=== PATIENT | male | born 1965 | race Caucasian/White ===

== ENCOUNTER 2021-03-01 14:39 | Outpatient (RCR) | payer OTHER, SELFPAY ==
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
--- NOTE | 2021-03-29 15:40 | PTOPEVAL ---
Thank you for referring Atilio Travis to [facility].? The patient is scheduled to be seen for therapy? ____x/week for ___ weeks. Please review, sign, date and return this plan of care BARNEY. I agree with and certify that the following plan of care is medically necessary. 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 he reports Family he still has some issues with tingling in the hands, feet, and face, but reports his strength and endurance are much improved since beginning therapy. Pain Assessment Timing of Pain Assessment Timing of Pain Assessment Assessment Self Report Self Report Pain Level 0 Pain Score Pain Score 0: Self Report Lower Extremity Muscle Strength Testing General Lower Extremity Strength Gross Lower Extremity Strength 5/5 R ankle DF and 5/5 PF 5/5 L ankle DF and 5/5 PF 5/5 R knee 5/5 L knee 5/5 hip flexion all measured in sitting Balance Assessment Tinetti Balance Assessment Sitting Balance Steady, safe Ability to Arise Able, w/o using arms Attempts to Arise Arises on 1st attempt Immediate Standing Balance Steady w/o support Standing Balance Narrow stance w/o support Nudged Response Steady Standing with Eyes Closed Steady Step Pattern Turning 360 Degrees Continuous steps Stability Turning 360 Degrees Steady Sitting Down Safe, steady Initiation of Gait No hesitancy Right Foot Step Length Does pass stance foot Right Foot Step Height Completely clears floor Left Foot Step Length Does pass stance foot Left Foot Step Height Completely clears floor Step Symmetry Step length appears equal Step Continuity Steps appear continuous Path Description Straight Trunk Description No sway Walking Stance Heels together Assistive Devices Used No Tinetti Composite Sco
== END 2021-03-29 14:19 | disposition home or self-care (01) ==
LOC: CHSPT 14:39
DX: G61.0 Guillain-Barre syndrome (principal)
CPT/HCPCS: 97110; 97112; 97161; 97530

== ENCOUNTER 2023-01-24 20:55 | Emergency (ER) | payer OTHER, SELFPAY ==
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
[2023-01-24 21:02] VITALS: BP 119/79; PULSE 73; RESP 16; TEMP 36.1; O2SAT 96
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
== END 2023-01-24 22:39 | disposition home or self-care (01) ==
PROVIDERS: Emergency Provider Internal Medicine Critical Care Medicine
DX: S01.112A Laceration without foreign body of left eyelid and periocular area, initial encounter (principal); I48.91 Unspecified atrial fibrillation; F17.210 Nicotine dependence, cigarettes, uncomplicated; Z79.01 Long term (current) use of anticoagulants; V89.2XXA Person injured in unspecified motor-vehicle accident, traffic, initial encounter
CPT/HCPCS: 12011; 70450; 72170; 99284

== ENCOUNTER 2024-10-17 11:44 | Emergency (ER) | payer OTHER, SELFPAY ==
[2024-10-17] VITALS (22 sets, daily range): BP systolic 114–132; BP diastolic 80–97; PULSE 64–69; RESP 18–20; TEMP 36.7; O2SAT 95–99
--- NOTE | ~2024-10-17 | CT_ITS ---
EXAM: CT abdomen pelvis w con - 10/17/2024 14:05 CDT History: 59 years old Male with lower abdominal pain, constipation/diarrhea x3 days TECHNIQUE: Multidetector CT of the abdomen and pelvis with intravenous contrast. Coronal and sagitta l reformats were also provided for review. Automatic exposure control was used for this study. CONTRAST: 100 cc of Optiray 350 was used for this study. COMPARISON: None Available. FINDINGS: VISUALIZED CHEST: Mild dependent changes. ABDOMEN and PELVIS: LIVER: Within normal limits. GALLBLADDER: No calcified gallstones. BILE DUCTS: No dilatation. SPLEEN: Within normal limits. PANCREAS: Within normal limits. ADRENAL GLANDS: Within normal limits. KIDNEYS and URETERS: No hydronephrosis or hydroureter. No nephroureterolithiasis. URINARY BLADDER: Within normal limits. STOMACH and BOWEL: Diffuse fat stranding around the sigmoid colon. Findings are compatible with acute sigmoid diverticulitis and/or focal colitis. No rim-enhancing abscess seen. Normal appendix. Multipl e colonic diverticula are seen. REPRODUCTIVE ORGANS: Within normal limits. MESENTERY/PERITONEAL CAVITY: No free fluid or pneumoperitoneum. LYMPH NODES: No abdominal or pelvic lymphadenopathy. ABDOMINAL WALL: Within normal limits. VASCULATURE: Within normal limits. MUSCULOSKELETAL: Multilevel degenerative changes of the spine. IMPRESSION: Findings are compatible with acute uncomplicated sigmoid diverticulitis and/or focal colitis. No rim- enhancing abscess seen. Reviewed, dictated and finalized at location A. IMPRESSION: Findings are compatible with acute uncomplicated sigmoid diverticulitis and/or focal colitis. No rim-enhancing abscess seen.
--- OUTSIDE RECORDS SUMMARY | 2024-10-17 11:47 | XMS_ITS | Data Portability ---
Author Organization [facility]/[employer] [employer] [facility] K[facility] SI (11) Address [address] [facility] [address] [place] [address] Care Team Providers Care Bulk Station Agent Name Role Phone VITA NGUYEN Referring Provider Assessment No assessment recorded. Plan of Treatment Reminders Order Date Submit Date Provider Last Modified By Organization Details Last Modified Time Details Appointments None record ed. Lab None record ed. Referral None record ed. Procedures None record ed. Surgeries None record ed. Imaging None record ed. Medication Orders None record ed. Patient TargetsNo targets recorded. Patient InstructionsNo instructions recorded. Reason for Referral None Reported. Procedures Surgical History Date Name Laterality Status Provider Name and Address Organization Details Recorded Time 05/04/2022 Sleep Study completed Oleksandr Hemphill [facility] [employer] 05/05/19 23 09:22:18 12/29/2020 Sleep Study completed Oleksandr Hemphill [facility] [employer] 01/01/20 21 12:55:10 Imaging Results None recorded. Procedure Notes None recorded. Medical Equipment None Reported. Medications Name Sig Start Date Stop Date Status Note LastModified by Organization Details LastModified Time vancomycin 125 mg capsule TAKE ONE CAPSULE BY MOUTH EVERY 6 HOURS FOR 10 DAYS DIRECTED active Not Available Not Available No t Available gabapentin 300 mg capsule TAKE 1 CAPSULE BY MOUTH THREE TIMES DAILY active Not Available Not Available No t Available metoprolol succinate ER 25 mg tablet,extende d release 24 hr active Not Available Not Available Not Available rosuvastatin 40 mg tablet TAKE 1 TABLET BY MOUTH EVERY DAY active Not Available Not Available No t Available metoprolol tartrate 25 mg tablet active Not Available Not Available Not Available tinidazole 500 mg tablet TAKE 4 TABLETS BY MOUTH DAILY FOR 3 DAYS active Not Available Not Available No t Available Eliquis 5 mg tablet active Not Available Not Available Not Available Vitals Date Recorded Body height Body mass index (BMI) Body weight Provider Name and Address Organization Details Last Updated DateTime 05/04/2022 175.26 cm 28.1 kg/m2 72712.55 g Jessica Lopez [facility] 05/04/2022 16:30:29 Date Recorded Body height Body mass index (BMI) Body weight Provider Name and Address Organization Details Last Updated DateTime 05/04/2022 175.26 cm 28.1 kg/m2 73873.55 g Oleksandr Hemphill [facility] 05/05/2022 09:21:29 Date Recorded Body height Body mass index (BMI) Body weight Provider Name and Address Organization Details Last Updated DateTime 12/29/2020 175.26 cm 27.9 kg/m2 41052.96 g Oleksandr Hemphill [facility] 12/29/2020 13:23:18 Social History None recorded. Functional Status None recorded. Mental Status None recorded. Family History Nothing Reported. Medical History No medical history recorded. Past Encounters Encounter ID Performer Location Encounter Start Date Encounter Closed Date Diagnosis/Indication Diagnosis SNOMED-CT Code Diagnosis ICD10 Code Diagnosis Note [id number] [employer] [facility] [id number] [facility] [address] [place] [address] 12/29/2020 12:59:21 12/30/2020 11:56:44 Obstructive sleep apnea of adult 5461214753 103 G47.33 [id number] [employer] [facility] [id number] [facility] [address] [place] [address] 05/04/2022 20:24:58 05/05/2022 09:18:56 Obstructive sleep apnea of adult 7248148051 103 G47.33 Health Concerns Section Related Observation LastModified by Organization Detai ls LastModified Time None Recorded Concern Status LastModified by Organization Details LastModified Time None Recorded Advance Directives Directive None Recorded Payers Insurance Date Sequence Insurance Name Policy Number Policy Jauregui Covered Member ID Jauregui Member ID Guarantor Name 05/11/[address] [place] [address] [id number] Atilio Range Notes Date Note Type Note Provider Name and Address Organization Details Recorded Time 1 text/html HST SetupReported by PatientEquipment InstructionsFor hst set up, patient reportsdemonstrated to patient how to set up home sleep test device. the patient was able to return demonstration with out difficulty.andthe patient is returning the device the following morning.. Cole Lebron MD, F.C.C.P. [id number] [place] [address], [place], [address], [facility] [place] [facility] 01/04/2021 08:38:21
--- OUTSIDE RECORDS SUMMARY | 2024-10-17 11:47 | XMS_ITS | Clinical Summary ---
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 Gender Identity Not on file Sexual Orientation Not on file Plan of Treatment Health Maintenance Due Date Last Done Comments Hepatitis C Virus (HCV) Screening 1965 TdaP Immunization 1965 Hepatitis B Immunization (1 of 3 - 19+ 3-dose series) 1984 Colonoscopy 2010 Colorectal Cancer Screening 2010 Cologuard 2015 Immunochemical Fecal Occult Blood 2015 Pneumococcal Immunization (5 0+ years) (1 of 1 - PCV) 2015 Zoster Immunization (1 of 2) 2015 PSA Discussion 2020 Influenza Immunization (#1) 2023 092 , 01/06/2019 SARS-COV-2 Immunization ( season) 2023 06/15/2020, 05/25/2020 Respiratory Syncytial Virus (RSV) Immunization (Adult) (1 - 1-dose 75+ series) 2040 Meningococcal Immunization (ACWY) Aged Out No longer eligible b ased on patient's age to complete this topic Pneumococcal Immunization Combined Aged Out No longer eligible b ased on patient's age to complete this topic Rotavirus Immunization Aged Out No lo nger eligible based on patient's age to complete this topic
--- OUTSIDE RECORDS SUMMARY | 2024-10-17 11:47 | XMS_ITS ---
Author Organization [facility] Address [address] [place] [id number] Care Team Providers Care Director Of Pulmonary Unit Name Role Phone Malick Li Primary Care Provider REASON FOR VISIT BJC, AFIB Social History Sex Assigned At : Social History Observation Description Sex Assigned At Male Encounters Encounter Location Date Provider Diagnosis [address] [address] 09/25/2024 Malick Li Plan Of Treatment Next Appt Details Provider Name:Jak Poon jaswinder, 12/23/2024 10:40:00 AM, [address] [place] [address], [phone], Progress Notes * Atilio TRAVIS BDOB:[birth year] (59 yo M)Acc No.[id number]:09/25/2024 Transition of Care Managemen t From Hospital Patient: Atilio JANG Provider: Maggie Li MD, FACP, AAHIVS :1965 A ge:59 Y S ex:Male Date:09/25/2024 Address:[address], [id number] Subjective: * Chief Complaints: * 1 . BJC, AFIB. * Active Problem List A53.9 Syphilis, unspecifie d Clinical Status:0 E78.4 Other hyperlipidemia Modified On:2Clinical Status:0 E78.5 Hyperlipidemia, unsp ecified Modified On:02/16/2021linical Status:0 F17.210 Nicotine dependence, cigarettes, uncomplicated Clinical Status:0 L72.9 Follicular cyst of t he skin and subcutaneous tissue, unspecified Clinical Status:0 R50.9 Fever, unspecified Clinical Status:0 Z20.2 Contact with and (busch spected) exposure to infections with a predominantly sexual mode of transmission Clinical Status:0 E78.5 Other and unspecifie d hyperlipidemia Modified On:03/07/2018Clinical Status:0 Z00.00 Routine general medi gabo examination at a health care facility Modified On:03/07/2018Clinical Status:0 F17.200 Tobacco use disorder Modified On:03/07/2018Clinical Status:0 G47.00 Insomnia Modified On:02/13/2020U Status:confirmed N40.1 Benign non-nodular p rostatic hyperplasia with lower urinary tract symptoms Modified On:2022 Status:confirmed G47.30 Sleep apnea Modified On:09/06/2022U Status:confirmed I49.9 Cardiac arrhythmia, unspecified cardiac arrhythmia type Modified On:02/16/2021 Status:confirmed I48.[address] Modified On:2022 Status:confirmed G62.9 Peripheral polyneuro tim Modified On:02/16/2021 Status:confirmed I48.3 Typical atrial flutt er Modified On:09/06/2022 Status:confirmed E74.39 Glucose intolerance Modified On:02/16/2021U Status:confirmed K59.00 Constipation, unspec ified constipation type Modified On:02/22/2021U Status:confirmed 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 Modified On:09/06/2022U Status:confirmed F41.9 Anxiety Modified On:09/06/2022U Status:confirmed E11.9 Type 2 diabetes luis alberto itus without complication, without long-term current use of insulin Modified On:08/25/2021U Status:confirmed F17.210 Smoking greater than 20 pack years Modified On:09/06/2022U Status:confirmed E78.00 Hypercholesteremia Modified On:09/06/2022W/U Status:confirmed K05.10 Gingivitis Modified On:06/13/2023W/U Status:confirmed B00.9 Herpes simplex Modified On:06/12/2024/U Status:confirmed * Medical History: * Implants: Objective: * Vitals: Assessment: Plan: * Treatment: * Billing Information: * Visit Code: * Procedure Codes: Care Plan Details* * Electronic signature of Miki Li MD, FACP on 10/17/2024 at 11:46 AM CDT Sign off status: Pending * Provider: Maggie Li MD, FACP, AAHIVS Date: 09/25/2024 Generated for Ttae aguero/Kelley/Gemaitting on: 10/17/2024 11:46 AM CDT
--- OUTSIDE RECORDS SUMMARY | 2024-10-17 11:47 | XMS_ITS | Encounter Summary ---
Author Organization [facility] Address [address] [place] [address] Phone Care Team Providers Care Percussion Tuner Name Role Phone Malick Li MD Primary Care Provider [phone] Encounter Details Date Type Department Care Team (Late st Contact Info) Description 10/13/2024 Results Follow-Up [facility] Cardiology [address] [facility] Advanced Medicine 8th [place] [address] [place] [address] Katelin Bates, MONICA [address] [place] [address] ECG 12 lead Social History Tobacco Use Types Packs/Day Years Used Date Smoking Tobacco: Every Day Cigarettes 0.5 40.6 Started: 1984 Smokeless Tobacco: Never Alcohol Use Standard Drinks/Week Comments Yes 0 (1 standard drink = 0.6 oz pur e alcohol) AUDIT-C Answer Date Recorded Q1: How often do you have a drink containing alc ohol? 2-4 times a month 10/18/2022 Average Number of Drinks Not on file 023 Frequency of Binge Drinking Not on file 09/24 Personal Safety Answer Date Recorded Have you ever been in or are you currently in a harmful physical or emotional relationship or is someone making you feel afraid or unsafe? 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 Auris positive patient on 09/17/24. Please contact infection prevention for instructions on obtaining surveillance cultures. - Re-admitted greater or equal to 7 days collect 1 swab. -If possible, can collect in outpatient setting. 09/17/2024 09/30/2024 documented as of this encounter Care Teams Percussion Tuner Relationship Specialty Start Date End Date Malick Li MD [address] [place] [address] PCP - General Internal Medicine 04/21/20 documented as of this encounter
--- OUTSIDE RECORDS SUMMARY | 2024-10-17 11:47 | XMS_ITS | Clinical Summary ---
Author Organization [facility] Address [address] [place] [address] Care Team Providers Care Acquisition Professional Name Role Phone Srikanth Hummel MD Primary Care Provider Aaliyah vailable Source Comments [facility],non-owned Affiliates and Associated Physician Practices is amultiple site organization consisting of ambulatory clinics and hospital sitesin [place], [place], [place] and [place]. This disclosure is being madepursuant to the Care Everywhere program and may not contain all information available regarding this patient. Last updated [facility] Allergies No known active allergies Medications * Be aware that medications may not be up to date on this document. Alwaysverify current medications with the patient. simvastatin (ZOCOR) 10 MG tablet Take 10 mg by mouth daily. Active JUICE PLUS FIBRE PO Take by mouth daily. Active hydrocodone-acet aminophen (VICODIN) 5-500 MG tablet Take 1-2 Tabs by mouth 4 times daily as needed for Pain. 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 Gender Identity Not on file Sexual Orientation Not on file Last Filed Vital Signs Vital Sign Reading Time Taken Comments Blood Pressure 155/96 09/21/2008 5:53 PM CDT Pulse 71 09/21/2008 5:53 PM CDT Temperature 36.1 C (97 F) 09/21/2008 4:18 PM CDT Respiratory Rate 16 09/21/2008 5:53 PM CDT Oxygen Saturation 99% 09/21/2008 5:53 PM CDT Inhaled Oxygen Concentration - - Weight 77.6 kg (171 lb) 09/21/2008 9:45 AM CDT Height 177.8 cm (5' 10) 09/21/2008 9:45 AM CDT Body Mass Index 24.54 09/21/2008 9:45 AM CDT Plan of Treatment Health Maintenance Due Date Last Done Comments COLOGUARD (AGES 45-75) - COL ON CA SCREENING 1965 COLON MONITORING 1965 COLONOSCOPY - COLON CA SCREENING 1965 CT COLONOGRAPHY - COLON CA SCREENING 1965 Colorectal Cancer Screening 1965 FIT - COLON CA SCREENING 1965 FLEX SIG - COLON CA SCREENING 1965 HIV SCREENING 1980 HEPATITIS C SCREENING 03/02/1983 DTAP/TDAP/TD VACCINES (1 - Tdap) 1984 HEPATITIS B VACCINE (1 of 3 - 19+ 3-dose series) 1984 PNEUMOCOCCAL VACCINE 50+ (1 of 1 - PCV) 2015 ZOSTER VACCINE (1 of 2) 2015 COVID-19 VACCINE (1 - 2023-2 5 season) 2023 DEPRESSION SCREENING 03/26/2024 INFLUENZA VACCINE (#1) 2024 HIB VACCINE Aged Out No longer eligi ble based on patient's age to complete this topic HPV VACCINE Aged Out No longer eligi ble based on patient's age to complete this topic MENINGOCOCCAL (Group B) VACC INE SHARED DECISION-MAKING Aged Out No longer eligibl e based on patient's age to complete this topic MENINGOCOCCAL GROUPS A/C/Y/W VACCINE Aged Out No longer eligible b ased on patient's age to complete this topic Insurance [facility] Care Teams Acquisition Professional Relationship Specialty Start Date End Date Srikanth Hummel MD PCP - General 09/18/08
--- OUTSIDE RECORDS SUMMARY | 2024-10-17 11:47 | XMS_ITS | Referral Summary ---
Author Organization [facility] Address [address] [place] [id number] Care Team Providers Care Living Specialist Name Role Phone Malick Li MD Primary Care Provider [phone]- [phone] Encounters Date Type Department Care Team Description 10/15/[address] [place] [id number] Sami Narayanan MD PhD 10/13/2024 Results Follow-Up [address] [place] [address] Katelin Bates NP ECG 12 lead 10/13/2024 2:45 PM CDT Office Visit [address] [place] [address] Katelin Bates NP Typical atrial flutter (HCC) (Primary Dx) 09/15/2024 7:04 PM CDT - 09/18/2024 11:01 AM CDT Hospital Encounter [facility] 1 [place] [address] Sami Narayanan MD PhD [facility] MD Aldiabat, Mohammad Awad Yousef, MD Discharge Disposition: Discharge to home or self care 09/15/2024 Telephone [facility] Bed Planning [address] [place] [address] Shannon Cuadra RN 09/08/2024 Telephone [facility] ADMIT 1 [place] [address] Maria Del Rosario Martinez RN 09/08/2024 Telephone [facility] Cardiology [facility] 8th [place] [address] [place] [address] Lexie Booianna 08/11/[address] 8th [place] [address] [place] [address] Sami Narayanan MD PhD 08/08/[address] 8th [place] [address] [place] [address] Sami Narayanan MD PhD 07/29/2024 1:00 PM CDT Office Visit [facility] Neuro Sleep [address] [facility] 6th Floor [address] [place] [address] Ricardo Rutherford PA TIANA (obstructive sleep apnea) (Primary Dx); Chronic insomnia; S/P placement of hypoglossal nerve stimulator 07/24/[address] [place] [address] [place] [address] Sami Narayanan MD PhD 07/24/2024 2:30 PM CDT Office Visit [facility] Neuro Muscle [address] [place] [address] [place] [address] [place] [address] Karen Mora MD 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 Medical Office Building 3 [address] [place] [address] Sami Narayanan MD PhD ECG 12 lead 07/23/2024 12:15 PM CDT Office Visit [address] [place] [address] [place] [address] Sami Narayanan MD PhD Paroxysmal atrial fibrillation (HCC) (Primary Dx); Typical atrial flutter (HCC) from Last 3 Months Allergies No known active allergies Medications rosuvastatin (CRESTOR) 40 mg tablet Take 1 tablet (40 mg total) by mouth every morning 1 Active Eliquis 5 mg tablet TAKE 1 TABLET(5 MG) BY MOUTH TWICE DAILY 60 tablet 11 4 Active dofetilide (TIKOSYN) 250 mcg capsuleIndicati ons:cardiac arrhythmia Take 1 capsule (250 mcg total) by mouth 2 (two) times a day 180 capsule 1 5 Active metoprolol XL (TOPROL-XL) 50 mg extended release tabletIndicatio ns:Atrial Arrhythmia Take 1 tablet (50 mg total) by mouth every morning 90 tablet 3 5 Active metoprolol XL (TOPROL-XL) 25 mg extended release tabletIndicatio ns:Atrial Arrhythmia Take 3 tablets (75 mg total) by mouth every morning 270 tablet 1 5 09/19/19 25 Discontinu ed(Stop Taking at Discharge) dofetilide (TIKOSYN) 250 mcg capsuleIndicati ons:cardiac arrhythmia Take 1 capsule (250 mcg total) by mouth 2 (two) times a day 60 capsule 5 10/16/19 25 Discontinu ed(Reorder ) metoprolol XL (TOPROL-XL) 50 mg extended release tabletIndicatio ns:Atrial Arrhythmia Take 1 tablet (50 mg total) by mouth every morning 30 tablet 5 10/16/19 25 Discontinu ed(Reorder ) Active Problems Problem Noted Date Diagnosed Date A-fib 09/15/2024 Assessment & Plan (09/18/2024 10:23 AM CDT): History of AFib s/p ablation 2020, Admit for dofetilide loading. - Telemetry -tikosyn 250 bid - EKG 2 hours after each dofetilide dose - Cardiology follow-up - metoprolol 50 xl - Continue home Eliquis Assessment & Plan (09/17/2024 1:24 PM CDT): History of AFib s/p ablation 2020, Admit for dofetilide loading. - Telemetry -tikosyn 250 bid - EKG 2 hours after each dofetilide dose - Cardiology follow-up - metoprolol 50 xl - Continue home Eliquis Assessment & Plan (09/16/2024 3:19 PM CDT): History of AFib s/p ablation 2020, Admit for dofetilide loading. - Telemetry -tikosyn 250 bid - EKG 2 hours after each dofetilide dose - Cardiology follow-up - metoprolol 50 xl - Continue home Eliquis Assessment & Plan (09/15/2024 10:18 PM CDT): History of AFib s/p ablation 2020, Admit for dofetilide loading. - Obtain CBC, CMP, Mag, phos, TSH, EKG - We will initiate dofetilide pending admission workup - Telemetry - EKG 2 hours after each dofetilide dose - Cardiology follow-up in a.m. - Hold home metoprolol - Continue home Eliquis Typical atrial flutter 06/21/2023 Atypical atrial flutter 06/21/2023 Sleep apnea 06/21/2023 Insomnia 06/21/2023 Type 2 diabetes mellitus without complication Tobacco use disorder 06/21/2023 Syphilis 06/21/2023 Smoking greater than 20 pack years 06/21/2023 Peripheral polyneuropathy 06/21/2023 Lower urinary tract symptoms due to benign prostatic hyperplasia 06/21/2023 HLD (hyperlipidemia) 06/21/2023 Assessment & Plan (09/18/2024 10:23 AM CDT): History hyperlipidemia: Continue home Crestor Assessment & Plan (09/17/2024 1:24 PM CDT): History hyperlipidemia: Continue home Crestor Assessment & Plan (09/16/2024 3:19 PM CDT): History hyperlipidemia: Continue home Crestor Assessment & Plan (09/15/2024 10:18 PM CDT): History hyperlipidemia: Continue home Crestor Hypercholesteremia 06/21/2023 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 Glucose intolerance 06/21/2023 Fever 06/21/2023 Epidermoid cyst of skin 06/21/2023 Constipation 06/21/2023 Cardiac arrhythmia 06/21/2023 Anxiety 06/21/2023 Chronic insomnia 01/06/2023 TIANA (obstructive sleep apnea) 08/04/2022 Overview (10/18/2022): DIAGNOSIS: Obstructive sleep apnea with CPAP intolerance PROCEDURE PERFORMED:(Pete 08/15/22) Drug induced sleep endoscopy DIAGNOSIS: Obstructive sleep apnea PROCEDURE PERFORMED: (Pete 09/28/22) Right hypoglossal nerve stimulator implantation Generator placement right chest wall Lead placement right intercostal muscle Weakness 02/24/2021 Typical atrial flutter 12/31/2020 Overview (12/31/2020): Added automatically from request for surgery [id number] Sensorineural hearing loss ( SNHL) of right ear with restricted hearing of left ear 05/04/2020 Mixed conductive and sensori neural hearing loss of left ear with restricted hearing of right ear 05/04/2020 Immunizations Immunization Administration Dates Next Due Influenza, Quadrivalent, Spl it, Preservative Free, Intramuscular 12/14/2019,01/06/2019 Influenza, Trivalent, IM (MDV) 12/23/2020 Pneumococcal Conjugate PCV 13 2018 Pneumococcal Polysaccharide PPV23 03/01/2016 ZOSTER Recombinant 08/16/2020,2018 Social History Tobacco Use Types Packs/Day Years Used Date Smoking Tobacco: Every Day Cigarettes 0.5 40.6 Started: 1984 Smokeless Tobacco: Never Tobacco Cessation:Ready to Q uit: No; Counseling Given: No Alcohol Use Standard Drinks/Week Comments Yes 0 [...] on file Legal Sex 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 Gender Identity Not on file Sexual Orientation Not on file Last Filed Vital Signs Vital Sign Reading Time Taken Comments Blood Pressure 119/82 10/13/2024 2:42 PM CDT Pulse 67 10/13/2024 2:42 PM CDT Temperature 36.6 C (97.9 F) 09/18/2024 7:47 AM CDT Respiratory Rate 18 09/18/2024 7:47 AM CDT Oxygen Saturation 99% 10/13/2024 2:42 PM CDT Inhaled Oxygen Concentration - - Weight 84.5 kg (186 lb 3.2 oz) 10/13/2024 2:42 P M CDT Height 175.3 cm (5' 9) 10/13/2024 2:42 PM CDT Body Mass Index 27.5 10/13/2024 2:42 PM CDT Plan of Treatment Not on file Medical Devices Implanted Type Area Wall Covering Contractor Device Identifier Shelf Expiration Date Model / Serial / Lot [employer] [id number] System 6-12fr Mvp Venous Closure Vascade - [id number] - [id number] Implanted:Qty: 1 on 01/28/2021 by Jeramie Caban MD at [facility] Collagen Right: Groin [employer] 10/07/2022 800-612C- [id number] / [id number] / [employer] [id number] System 6-12fr Mvp Venous Closure Vascade - [id number] Implanted:Qty: 1 on 01/28/2021 by Jeramie Caban MD at [facility] Collagen Right: Groin [employer] 11/10/2022 800-612C- 10U / / [id number] 30C [employer] [id number] System 6-12fr Mvp Venous Closure Vascade - [id number] - [id number] Implanted:Qty: 1 on 01/28/2021 by Jeramie Caban MD at [facility] Collagen Left: Groin [employer] 11/10/2022 800-612C- 10U / [id number] / [id number] 30C [employer] [id number] Device Closure Vascade Od5 Fr Femoral Artery - [id number] - [id number] Implanted:Qty: 1 on 01/28/2021 by Jeramie Caban MD at [facility] Collagen Left: Groin [employer] 10/11/2022 [id number] -[id number] / [id number] / [id number] [employer] Inspire 3 Electrode Cuff Tunnel Mendez Lead Neurostimulator Sterile 4063 - [id number] - [id number] Implanted:Qty: 1 on 09/28/2022 by Omar Freeman MD at [facility] Right: Neck [employer] 06/11/2025 4063 / [id number] / [employer] Lead Neurostimulator Sleep Apnea Thoracic Permanent Respiratory Sensing Inspire 43cm 4340 - [id number] - [id number] Implanted:Qty: 1 on 09/28/2022 by Omar Freeman MD at [facility] Right: Chest [employer] 07/24/2025 4340 / [id number] / [employer] Inspire Generator 3028 - [id number] - [id number] Implanted:Qty: 1 on 09/28/2022 by Omar Freeman MD at [facility] Right: Chest [employer] 06/08/2025 3028 / [id number] / Procedures Procedure Name Priority Date/Time Associated Diagnosis Comments ECG 12-LEAD Routine 10/13/2024 2:53 PM CDT Typical atrial flutter (HCC) ECG 12-LEAD Routine 09/18/2024 10:11 AM CDT EGFR Routine 09/18/2024 3:20 AM CDT MAGNESIUM Routine 09/18/2024 3:20 AM CDT BASIC METABOLIC PANEL Routine 09/18/2024 3:20 AM CDT ECG 12-LEAD Routine 09/17/2024 10:34 AM CDT EGFR Routine 09/17/2024 3:19 AM CDT MAGNESIUM Routine 09/17/2024 3:19 AM CDT BASIC METABOLIC PANEL Routine 09/17/2024 3:19 AM CDT EGFR Routine 09/16/2024 3:40 AM CDT DIFFERENTIAL AUTO Routine 09/16/2024 3:4 0 AM CDT CBC WITH AUTO DIFFERENTIAL Routine 09/16/2024 3:40 AM CDT PHOSPHORUS Routine 09/16/2024 3:40 AM CDT MAGNESIUM Routine 09/16/2024 3:40 AM CDT COMPREHENSIVE METABOLIC PANEL Routine 09/16/2024 3:40 AM CDT EGFR STAT 09/15/2024 10:31 PM CDT DIFFERENTIAL AUTO STAT 09/15/2024 10:31 PM CDT PROTIME-INR STAT 09/15/2024 10:31 PM CDT APTT STAT 09/15/2024 10:31 PM CDT TSH STAT 09/15/2024 10:31 PM CDT PHOSPHORUS STAT 09/15/2024 10:31 PM CDT MAGNESIUM STAT 09/15/2024 10:31 PM CDT CBC WITH AUTO DIFFERENTIAL STAT 09/15/2024 10:31 PM CDT COMPREHENSIVE METABOLIC PANEL STAT 09/15/2024 10:31 PM CDT ECG 12-LEAD Routine 07/23/2024 12:01 PM CDT Paroxysmal atrial fibrillation (HCC) CT LUNG CANCER SCREENING Schedule Routine, Read Routine (OP Routine) 11/20/2023 12:57 PM CDT Nicotine dependence, cigarettes, uncomplicated HEPATITIS PANEL, ACUTE STAT 02/14/2021 6:52 PM DIRECTOR OF CONSTRUCTION ALBUMIN CREATININE RATIO, URINE STAT 02/14/2021 6:52 PM DIRECTOR OF CONSTRUCTION HEMOGLOBIN A1C STAT 02/14/2021 1:28 PM DIRECTOR OF CONSTRUCTION SERUM LIPID PANEL Routine 08/09/2015 3:5 3 PM CDT from Last 3 Months or Most Recently Relevant to Health Maintenance Results * ECG 12 lead (10/13/2024 2:53 PM CDT) us Katelin Bates NP ECG ORDERABLES Edited R esult - Final * ECG 12 lead (09/18/2024 10:11 AM CDT) Pathologist [facility] Ventricular Rate EKG/Min 55 BPM [facility] Atrial Rate 55 BPM [facility] VT-Interval (MSEC) 130 ms [facility] QRS-Interval (MSEC) 78 ms [facility] QT-Interval (MSEC) 450 ms [facility] QTc 430 ms [facility] R Valier 189 degrees [facility] T Valier 155 degrees [facility] Diagnosis Atrial-sensed ventricular-pa rafa rhythm Abnormal ECG When compared with ECG of 17-SEP-2024 10:34, Electronic ventricular pacemaker has replaced Sinus rhythm Confirmed by Natacha NAVAS, Pat ([id number]) on 09/19/2024 11:16:22 AM [facility] 09/18/2024 10:1 1 AM CDT 09/19/2024 11:16 AM CDT us Shelly Ramon MD ECG ORDERABLES Final Result [facility] * (ABNORMAL) eGFR (09/18/2024 3:20 AM CDT) eGFR 52(L) >=60 mL/min/1. 73 m2 Comment: Interpretive Data Reference Interval Normal >/= 90 mL/min/1.73m2 Mildly decreased* 60 - 89 mL/min/1.73m2 Mildly to moderately decreased 45 - 59 mL/min/1.73m2 Moderately to severely decreased 30 - 44 mL/min/1.73m2 Severely decreased 15 - 29 mL/min/1.73m2 Kidney Failure < 15 mL/min/1.73m2 *Relative to young adult level Estimated glomerular filtration rate is determined by the 2020 CKD-EPI equation recommended by the National Kidney Foundation (A Unifying Approach to GFR Estimation: Recommendations of the NKF-ASK Task Force on Reassessing the Inclusion of Race in Diagnosing Kidney Disease, JASN 2020). The CKD-EPI equation should not be used for patients with unstable renal function and has not been validated in children and those over 70. Current interpretive data was last reviewed 2021. Blood 09/18/2024 3:20 AM CDT 09/18/2024 5:01 AM CDT Vikas Gaytan MD LAB BLOOD ORDERA BLES Final Result Performing Organization Address City/[facility]/ZIP Co de Phone Number [facility] [address] * Magnesium (09/18/2024 3:20 AM CDT) Magnesium 2.2 1.4 - 2.5 mg/dL Blood 09/18/2024 3:20 AM CDT 09/18/2024 5:01 AM CDT Vikas Gaytan MD LAB BLOOD ORDERA BLES Final Result [facility] [place] [address] * (ABNORMAL) Basic metabolic panel (09/18/2024 3:20 AM CDT) Pathologist [facility] Sodium 139 135 - 145 mmol/L Potassium, pl 4.2 3.3 - 4.9 mmol/L [facility] Chloride 105 97 - 110 mmol/L [facility] CO2 25 22 - 32 mmol/L [facility] Anion gap 9 2 - 15 mmol/L [facility] BUN 20 6 - 25 mg/dL [facility] Creatinine 1.52(H) 0.80 - 1.30 mg/dL [facility] Glucose 128 70 - 199 mg/dL [facility] Comment: Interpretive Data Fasting glucose >/= 126 mg/dl is diagnostic for diabetes. Fasting is defined as no caloric intake for at least 8 hours. Fasting glucose between 100 mg/dl to 125 mg/dl is diagnostic of prediabetes. In a patient with classic symptoms of hyperglycemia or hyperglycemic crisis, a random glucose >/= 200 mg/dl is diagnostic for diabetes. In the absence of unequivocal hyperglycemia, results should be confirmed by repeat testing. The classification and Diagnosis of Diabetes Diabetes Care 202; 46: S19-S40. Current interpretive data was last revised 2022. Calcium 8.9 8.5 - 10.3 mg/dL [facility] Blood 09/18/2024 3:20 AM CDT 09/18/2024 5:01 AM CDT Vikas Gaytan MD LAB BLOOD ORDERA BLES Final Result [facility] [place] [address] * ECG 12 lead (09/17/2024 10:34 AM CDT) Pathologist [facility] Ventricular Rate EKG/Min 59 BPM [facility] Atrial Rate 59 BPM [facility] VT-Interval (MSEC) 140 ms [facility] QRS-Interval (MSEC) 72 ms [facility] QT-Interval (MSEC) 414 ms [facility] QTc 409 ms [facility] P Valier 15 degrees [facility] R Valier -15 degrees [facility] T Valier 14 degrees [facility] Diagnosis Sinus bradycardia with Premature atrial complexes Otherwise normal ECG No previous ECGs available Confirmed by HIEU ALCANTAR M.D ([id number]) on 09/18/2024 10:12:19 AM [facility] 09/17/2024 10:3 4 AM CDT 09/18/2024 10:12 AM CDT Shelly Ramon MD ECG ORDERABLES Final Result [facility] * (ABNORMAL) eGFR (09/17/2024 3:19 AM CDT) eGFR 58(L) >=60 mL/min/1. 73 m2 Comment: Interpretive Data Reference Interval Normal >/= 90 mL/min/1.73m2 Mildly decreased* 60 - 89 mL/min/1.73m2 Mildly to moderately decreased 45 - 59 mL/min/1.73m2 Moderately to severely decreased 30 - 44 mL/min/1.73m2 Severely decreased 15 - 29 mL/min/1.73m2 Kidney Failure < 15 mL/min/1.73m2 *Relative to young adult level Estimated glomerular filtration rate is determined by the 2020 CKD-EPI equation recommended by the National Kidney Foundation (A Unifying Approach to GFR Estimation: Recommendations of the NKF-ASK Task Force on Reassessing the Inclusion of Race in Diagnosing Kidney Disease, JASN 2020). The CKD-EPI equation should not be used for patients with unstable renal function and has not been validated in children and those over 70. Current interpretive data was last reviewed 2021. Blood 09/17/2024 3:19 AM CDT 09/17/2024 4:29 AM CDT Vikas Gaytan MD LAB BLOOD ORDERA BLES Final Result [facility] [place] [address] * Magnesium (09/17/2024 3:19 AM CDT) Pathologist [facility] Magnesium 2.1 1.4 - 2.5 mg/dL Blood 09/17/2024 3:19 AM CDT 09/17/2024 4:29 AM CDT Vikas Gaytan MD LAB BLOOD ORDERA BLES Final Result [facility] Department [place] [address] * (ABNORMAL) Basic metabolic panel (09/17/2024 3:19 AM CDT) Pathologist [facility] Sodium 139 135 - 145 mmol/L Potassium, pl 4.6 3.3 - 4.9 mmol/L [facility] Chloride 105 97 - 110 mmol/L [facility] CO2 25 22 - 32 mmol/L [facility] Anion gap 9 2 - 15 mmol/L [facility] BUN 18 6 - 25 mg/dL [facility] Creatinine 1.40(H) 0.80 - 1.30 mg/dL [facility] Glucose 106 70 - 199 mg/dL [facility] Comment: Interpretive Data Fasting glucose >/= 126 mg/dl is diagnostic for diabetes. Fasting is defined as no caloric intake for at least 8 hours. Fasting glucose between 100 mg/dl to 125 mg/dl is diagnostic of prediabetes. In a patient with classic symptoms of hyperglycemia or hyperglycemic crisis, a random glucose >/= 200 mg/dl is diagnostic for diabetes. In the absence of unequivocal hyperglycemia, results should be confirmed by repeat testing. The classification and Diagnosis of Diabetes Diabetes Care 202; 46: S19-S40. Current interpretive data was last revised 2022. Calcium 9.1 8.5 - 10.3 mg/dL [facility] Blood 09/17/2024 3:19 AM CDT 09/17/2024 4:29 AM CDT Vikas Gaytan MD LAB BLOOD ORDERA BLES Final Result Performing Organization Address City/[facility] Co de Phone Number [facility] Department [place] [address] * (ABNORMAL) eGFR (09/16/2024 3:40 AM CDT) eGFR 53(L) >=60 mL/min/1. 73 m2 Comment: Interpretive Data Reference Interval Normal >/= 90 mL/min/1.73m2 Mildly decreased* 60 - 89 mL/min/1.73m2 Mildly to moderately decreased 45 - 59 mL/min/1.73m2 Moderately to severely decreased 30 - 44 mL/min/1.73m2 Severely decreased 15 - 29 mL/min/1.73m2 Kidney Failure < 15 mL/min/1.73m2 *Relative to young adult level Estimated glomerular filtration rate is determined by the 2020 CKD-EPI equation recommended by the National Kidney Foundation (A Unifying Approach to GFR Estimation: Recommendations of the NKF-ASK Task Force on Reassessing the Inclusion of Race in Diagnosing Kidney Disease, JASN 2020). The CKD-EPI equation should not be used for patients with unstable renal function and has not been validated in children and those over 70. Current interpretive data was last reviewed 2021. Blood 09/16/2024 3:40 AM CDT 09/16/2024 5:08 AM CDT Shelly Ramon MD LAB BLOOD ORDER GENESIS Final Result [facility] Department [place] [address] * Differential, auto (09/16/2024 3:40 AM CDT) Neutrophil abs 3.77 1.50 - 6.50 K/cumm Imm gran abs 0.01 0.00 - 0.10 K/cumm [facility] Lymphocyte abs 1.69 0.80 - 3.30 K/cumm [facility] Monocyte abs 0.50 0.20 - 0.80 K/cumm [facility] Eosinophil abs 0.17 0.00 - 0.50 K/cumm [facility] Basophil abs 0.03 0.00 - 0.10 K/cumm [facility] Neutrophil pct 61.0 % [facility] Comment: Interpretive Data Percent cell count reference ranges are not reported, since discordance with absolute values may lead to misinterpretation of CBC data. Current Interpretive Data was last revised on 2017. Imm gran pct 0.2 % [facility] Comment: Interpretive Data Percent cell count reference ranges are not reported, since discordance with absolute values may lead to misinterpretation of CBC data. Current Interpretive Data was last revised on 2017. Lymphocyte pct 27.4 % [facility] Comment: Interpretive Data Percent cell count reference ranges are not reported, since discordance with absolute values may lead to misinterpretation of CBC data. Current Interpretive Data was last revised on 2017. Monocyte pct 8.1 % [facility] Comment: Interpretive Data Percent cell count reference ranges are not reported, since discordance with absolute values may lead to misinterpretation of CBC data. Current Interpretive Data was last revised on 2017. Eosinophil pct 2.8 % [facility] Comment: Interpretive Data Percent cell count reference ranges are not reported, since discordance with absolute values may lead to misinterpretation of CBC data. Current Interpretive Data was last revised on 2017. Basophil pct 0.5 % [facility] Comment: Interpretive Data Percent cell count reference ranges are not reported, since discordance with absolute values may lead to misinterpretation of CBC data. Current Interpretive Data was last revised on 2017. Blood 09/16/2024 3:40 AM CDT 09/16/2024 5:09 AM CDT Shelly Ramon MD LAB BLOOD ORDER GENESIS Final Result [facility] [place] [address] * (ABNORMAL) CBC with auto differential (09/16/2024 3:40 AM CDT) [facility] WBC 6.17 3.80 - 9.90 K/cumm Hgb 14.5 13.0 - 17.5 g/dL [facility] Hct 42.8 38.9 - 50.3 % [facility] Plt 146(L) 150 - 400 K/cumm [facility] MPV 11.2 9.1 - 12.3 fL [facility] RBC 4.69 4.30 - 5.80 M/cumm [facility] MCV 91.3 81.3 - 96.4 fL [facility] MCH 30.9 27.1 - 33.3 pg [facility] MCHC 33.9 32.3 - 35.7 g/dL [facility] RDW CV 14.0 11.1 - 14.9 % [facility] RDW SD 46.4 35.7 - 48.1 fL [facility] NRBC abs 0.00 0.00 - 0.01 K/cumm [facility] Blood 09/16/2024 3:40 AM CDT 09/16/2024 5:09 AM CDT Shelly Ramon MD LAB BLOOD ORDER GENESIS Final Result Performing Organization Address City/[facility] Co de Phone Number [facility] [place] [address] * Phosphorus (09/16/2024 3:40 AM CDT) [facility] Phosphorus, pl 3.9 2.3 - 4.5 mg/dL Blood 09/16/2024 3:40 AM CDT 09/16/2024 5:08 AM CDT Shelly Ramon MD LAB BLOOD ORDER GENESIS Final Result Performing Organization Address City/[facility]/ZIP Co de Phone Number [facility] [place] [address] * Magnesium (09/16/2024 3:40 AM CDT) Magnesium 2.2 1.4 - 2.5 mg/dL Blood 09/16/2024 3:40 AM CDT 09/16/2024 5:08 AM CDT Shelly Ramon MD LAB BLOOD ORDER GENESIS Final Result [facility] [place] [address] * (ABNORMAL) Comprehensive metabolic panel (09/16/2024 3:40 AM CDT) Pathologist [facility] Sodium 140 135 - 145 mmol/L Potassium, pl 4.6 3.3 - 4.9 mmol/L [facility] Chloride 105 97 - 110 mmol/L [facility] CO2 25 22 - 32 mmol/L [facility] Anion gap 10 2 - 15 mmol/L [facility] BUN 16 6 - 25 mg/dL [facility] Creatinine 1.50(H) 0.80 - 1.30 mg/dL [facility] Glucose 89 70 - 199 mg/dL [facility] Comment: Interpretive Data Fasting glucose >/= 126 mg/dl is diagnostic for diabetes. Fasting is defined as no caloric intake for at least 8 hours. Fasting glucose between 100 mg/dl to 125 mg/dl is diagnostic of prediabetes. In a patient with classic symptoms of hyperglycemia or hyperglycemic crisis, a random glucose >/= 200 mg/dl is diagnostic for diabetes. In the absence of unequivocal hyperglycemia, results should be confirmed by repeat testing. The classification and Diagnosis of Diabetes Diabetes Care 2021; 46: S19-S40. Current interpretive data was last revised 2022. Calcium 9.2 8.5 - 10.3 mg/dL [facility] Bilirubin, total 0.8 0.1 - 1.2 mg/dL [facility] Protein, pl 6.8 6.5 - 8.5 g/dL [facility] Albumin 4.0 3.5 - 5.0 g/dL [facility] Alk phos 78 40 - 130 Units/L [facility] ALT 33 7 - 55 Units/L [facility] AST 31 10 - 50 Units/L [facility] Blood 09/16/2024 3:40 AM CDT 09/16/2024 5:08 AM CDT Shelly Ramon MD LAB BLOOD ORDER GENESIS Final Result Performing Organization Address City/[facility]/ZIP Co de Phone Number [facility] [place] [address] * (ABNORMAL) eGFR (09/15/2024 10:31 PM CDT) eGFR 56(L) >=60 mL/min/1. 73 m2 Comment: Interpretive Data Reference Interval Normal >/= 90 mL/min/1.73m2 Mildly decreased* 60 - 89 mL/min/1.73m2 Mildly to moderately decreased 45 - 59 mL/min/1.73m2 Moderately to severely decreased 30 - 44 mL/min/1.73m2 Severely decreased 15 - 29 mL/min/1.73m2 Kidney Failure < 15 mL/min/1.73m2 *Relative to young adult level Estimated glomerular filtration rate is determined by the 2020 CKD-EPI equation recommended by the National Kidney Foundation (A Unifying Approach to GFR Estimation: Recommendations of the NKF-ASK Task Force on Reassessing the Inclusion of Race in Diagnosing Kidney Disease, JASN 202). The CKD-EPI equation should not be used for patients with unstable renal function and has not been validated in children and those over 70. Current interpretive data was last reviewed 2021. Blood 09/15/2024 10:3 1 PM CDT 09/15/2024 11:26 PM CDT Shelly Ramon MD LAB BLOOD ORDER GENESIS Final Result Performing Organization Address City/[facility]/ZIP Co de Phone Number [facility] [place] [address] * Differential, auto (09/15/2024 10:31 PM CDT) Neutrophil abs 4.05 1.50 - 6.50 K/cumm Imm gran abs 0.03 0.00 - 0.10 K/cumm [facility] Lymphocyte abs 1.99 0.80 - 3.30 K/cumm [facility] Monocyte abs 0.53 0.20 - 0.80 K/cumm [facility] Eosinophil abs 0.17 0.00 - 0.50 K/cumm [facility] Basophil abs 0.02 0.00 - 0.10 K/cumm [facility] Neutrophil pct 59.7 % [facility] Comment: Interpretive Data Percent cell count reference ranges are not reported, since discordance with absolute values may lead to misinterpretation of CBC data. Current Interpretive Data was last revised on 2017. Imm gran pct 0.4 % [facility] Comment: Interpretive Data Percent cell count reference ranges are not reported, since discordance with absolute values may lead to misinterpretation of CBC data. Current Interpretive Data was last revised on 2017. Lymphocyte pct 29.3 % [facility] Comment: Interpretive Data Percent cell count reference ranges are not reported, since discordance with absolute values may lead to misinterpretation of CBC data. Current Interpretive Data was last revised on 2017. Monocyte pct 7.8 % [facility] Comment: Interpretive Data Percent cell count reference ranges are not reported, since discordance with absolute values may lead to misinterpretation of CBC data. Current Interpretive Data was last revised on 2017. Eosinophil pct 2.5 % [facility] Comment: Interpretive Data Percent cell count reference ranges are not reported, since discordance with absolute values may lead to misinterpretation of CBC data. Current Interpretive Data was last revised on 2017. Basophil pct 0.3 % [facility] Comment: Interpretive Data Percent cell count reference ranges are not reported, since discordance with absolute values may lead to misinterpretation of CBC data. Current Interpretive Data was last revised on 2017. Blood 09/15/2024 10:3 1 PM CDT 09/15/2024 11:27 PM CDT Shelly Ramon MD LAB BLOOD ORDER GENESIS Final Result Performing Organization Address City/[facility] Co de Phone Number [facility] Department [place] [address] * (ABNORMAL) CBC with auto differential (09/15/2024 10:31 PM CDT) [facility] WBC 6.79 3.80 - 9.90 K/cumm Hgb 14.1 13.0 - 17.5 g/dL [facility] Hct 40.7 38.9 - 50.3 % [facility] Plt 145(L) 150 - 400 K/cumm [facility] MPV 11.3 9.1 - 12.3 fL [facility] RBC 4.59 4.30 - 5.80 M/cumm [facility] MCV 88.7 81.3 - 96.4 fL [facility] MCH 30.7 27.1 - 33.3 pg [facility] MCHC 34.6 32.3 - 35.7 g/dL [facility] RDW CV 13.9 11.1 - 14.9 % [facility] RDW SD 45.0 35.7 - 48.1 fL [facility] NRBC abs 0.00 0.00 - 0.01 K/cumm [facility] Blood 09/15/2024 10:3 1 PM CDT 09/15/2024 11:27 PM CDT Shelly Ramon MD LAB BLOOD ORDER GENESIS Final Result [facility] [place] [address] * aPTT (09/15/2024 10:31 PM CDT) [facility] aPTT 34 28 - 38 sec Comment: Interpretive Data Heparin therapeutic range: 66.0 - 100.0 seconds. Range based on correlation with therapeutic heparin activity range of 0.3 - 0.7 Units/mL. Current interpretive data was last revised on 2022. Blood 09/15/2024 10:3 1 PM CDT 09/15/2024 11:27 PM CDT Shelly Ramon MD LAB BLOOD ORDER GENESIS Final Result Performing Organization Address [facility] de Phone Number [facility] [place] [address] * (ABNORMAL) Protime-INR (09/15/2024 10:31 PM CDT) PT 15.3(H) 9.7 - 13.0 sec INR 1.41(H) 0.90 - 1.20 [facility] Comment: Interpretive data Oral anticoagulant therapeutic ranges: Venous thromboembolism prophylaxis or treatment: 2.0-3.0 CARDIOLOGY Standard range: 2.0-3.0 High-intensity range: 2.5-3.5 Refer to indication-specific guidelines for appropriate target ranges for prosthetic heart valve replacement. Current interpretive data was last revised on 2019. Blood 09/15/2024 10:3 1 PM CDT 09/15/2024 11:27 PM CDT Shelly Ramon MD LAB BLOOD ORDER GENESIS Final Result Performing Organization Address [facility] de Phone Number [facility] [place] [address] * TSH (09/15/2024 10:31 PM CDT) Thyroid Stimulating Hormone 2.42 0.30 - 4.20 mcIUnit/mL Blood 09/15/2024 10:3 1 PM CDT 09/15/2024 11:26 PM CDT Shelly Ramon MD LAB BLOOD ORDER GENESIS Final Result Performing Organization Address [facility]/ZIP Co de Phone Number [facility] [place] [address] * Phosphorus (09/15/2024 10:31 PM CDT) [facility] Phosphorus, pl 2.7 2.3 - 4.5 mg/dL Blood 09/15/2024 10:3 1 PM CDT 09/15/2024 11:26 PM CDT Shelly Ramon MD LAB BLOOD ORDER GENESIS Final Result Performing Organization Address City/[facility] Co de Phone Number [facility] [place] [address] * Magnesium (09/15/2024 10:31 PM CDT) [facility] Magnesium 2.4 1.4 - 2.5 mg/dL Blood 09/15/2024 10:3 1 PM CDT 09/15/2024 11:26 PM CDT Shelly Ramon MD LAB BLOOD ORDER GENESIS Final Result Performing Organization Address City/[facility] Co de Phone Number [facility] [place] [address] * (ABNORMAL) Comprehensive metabolic panel (09/15/2024 10:31 PM CDT) [facility] Sodium 142 135 - 145 mmol/L Potassium, pl 4.2 3.3 - 4.9 mmol/L [facility] Chloride 105 97 - 110 mmol/L [facility] CO2 29 22 - 32 mmol/L [facility] Anion gap 8 2 - 15 mmol/L [facility] BUN 16 6 - 25 mg/dL [facility] Creatinine 1.45(H) 0.80 - 1.30 mg/dL [facility] Glucose 127 70 - 199 mg/dL [facility] Comment: Interpretive Data Fasting glucose >/= 126 mg/dl is diagnostic for diabetes. Fasting is defined as no caloric intake for at least 8 hours. Fasting glucose between 100 mg/dl to 125 mg/dl is diagnostic of prediabetes. In a patient with classic symptoms of hyperglycemia or hyperglycemic crisis, a random glucose >/= 200 mg/dl is diagnostic for diabetes. In the absence of unequivocal hyperglycemia, results should be confirmed by repeat testing. The classification and Diagnosis of Diabetes Diabetes Care 2021; 46: S19-S40. Current interpretive data was last revised 2022. Calcium 9.3 8.5 - 10.3 mg/dL [facility] Bilirubin, total 1.0 0.1 - 1.2 mg/dL [facility] Protein, pl 6.6 6.5 - 8.5 g/dL [facility] Albumin 4.0 3.5 - 5.0 g/dL [facility] Alk phos 72 40 - 130 Units/L [facility] ALT 35 7 - 55 Units/L [facility] AST 28 10 - 50 Units/L [facility] Blood 09/15/2024 10:3 1 PM CDT 09/15/2024 11:26 PM CDT Shelly Ramon MD LAB BLOOD ORDER GENESIS Final Result [facility] [place] [address] * ECG 12 lead (07/23/2024 12:01 PM CDT) us Sami Narayanan MD PhD ECG ORDERABLES Jose brent Result - Final * CT Lung Cancer Screening (11/20/2023 12:57 PM CDT) Anatomical Region Laterality Modality Chest N/A Computed Tomogra phy 11/20/2023 1:07 PM CDT Impressions 11/20/2023 1:07 PM CDT LungRADS Category 1 (negative) . Recommend Low dose Screening CT of chest in 12 months. LungRADS Categories: 1 - Negative (no nodules, or only benign calcified or fat-containing nodules) 2 - Benign Appearance or Behavior (nodules with very low likelihood of becoming a clinically active cancer due to size or lack of growth) 3 - Probably Benign (probably benign findings-short term follow up suggested; includes nodules with a low likelihood of becoming a clinically active cancer) 4A,4B,4X - Suspicious (category 3 or 4 nodules with findings for which additional diagnostic testing and/or tissue sampling is recommended) S - Other (clinically significant or potentially clinically significant findings (non-lung cancer) C - Prior Lung Cancer (modifier for patients with a prior diagnosis of lung cancer who return to screening) Electronically signed by: Malick Castillo M.D. Narrative 11/20/2023 1:07 PM CDT EXAMINATION: Lung cancer screening CT of the Chest without intravenous contrast HISTORY: Lung Cancer Screening TECHNIQUE: Low radiation dose chest protocol. No intravenous contrast. Reconstructed slice width 1.[address] Dose Index 1.0 mGy. Dose-length product 99 mGy-cm. COMPARISON: 06/10/2022 FINDINGS: Lung nodules or findings of lung cancer: None Smoking related lung disease: None Other findings: Interval placement of a hypoglossal nerve stimulator upper right anterior chest wall and neck. Mild multivessel coronary artery calcifications. Procedure Note Malick Castillo MD - 11/20/2023 EXAMINATION: Lung cancer screening CT of the Chest without intravenous contrast HISTORY: Lung Cancer Screening TECHNIQUE: Low radiation dose chest protocol. No intravenous contrast. Reconstructed slice width 1.[address] Dose Index 1.0 mGy. Dose-length product 99 mGy-cm. COMPARISON: 06/10/2022 FINDINGS: Lung nodules or findings of lung cancer: None Smoking related lung disease: None Other findings: Interval placement of a hypoglossal nerve stimulator upper right anterior chest wall and neck. Mild multivessel coronary artery calcifications. IMPRESSION: LungRADS Category 1 (negative) . Recommend Low dose Screening CT of chest in 12 months. LungRADS Categories: 1 - Negative (no nodules, or only benign calcified or fat-containing nodules) 2 - Benign Appearance or Behavior (nodules with very low likelihood of becoming a clinically active cancer due to size or lack of growth) 3 - Probably Benign (probably benign findings-short term follow up suggested; includes nodules with a low likelihood of becoming a clinically active cancer) 4A,4B,4X - Suspicious (category 3 or 4 nodules with findings for which additional diagnostic testing and/or tissue sampling is recommended) S - Other (clinically significant or potentially clinically significant findings (non-lung cancer) C - Prior Lung Cancer (modifier for patients with a prior diagnosis of lung cancer who return to screening) Electronically signed by: Malick Castillo M.D. us Malick Li MD IMG CT PROCEDURES Final Re sult * Albumin Creatinine Ratio, Urine (02/14/2021 6:52 PM DIRECTOR OF CONSTRUCTION) Pathologist [facility] Albumin Ur 17.7 mg/L [facility] Comment: Interpretive Data No reference range established. Current interpretive data was last revised 2018. Creatinine Ur 209.0 mg/dL [facility] Comment: Interpretive Data No reference range established. Current interpretive data was last revised 2018. Albumin Creatinine Ratio, Ur 8 1 - 29 mg/g [facility] Urine 02/14/2021 6:52 PM DIRECTOR OF CONSTRUCTION 02/14/2021 6:59 PM DIRECTOR OF CONSTRUCTION Ulysses FUNES LAB URINE ORDERABLES F inal Result [facility] [place] [address] * Hepatitis panel, acute (02/14/2021 6:52 PM DIRECTOR OF CONSTRUCTION) Pathologist [facility] Hep A IgM Nonreactive Nonreactive [facility] Comment: Interpretive Data: If Hep A IgM Ab is reported as Equivocal, a new sample should be drawn in two weeks for testing. Current interpretive data was last revised on 19. Hep B core IgM Nonreactive Nonreactive [facility] Comment: Interpretive Data If HepB Core IgM Ab is reported as Equivocal, a new sample should be drawn in two weeks for testing. Current interpretive data was last revised on 19. Hep C Ab Nonreactive Nonreactive [facility] Comment:Antibodies to HCV no t detected. Does NOT exclude the possibility of recent exposure to HCV. HepBsAg Nonreactive Nonreactive [facility] Blood 02/14/2021 6:52 PM DIRECTOR OF CONSTRUCTION 02/14/2021 6:58 PM DIRECTOR OF CONSTRUCTION Ulysses FUNES LAB MICROBIOLOGY - GEN ERAL ORDERABLES Edited Result - Final Performing Organization Address [facility] de Phone Number [facility] [place] [address] * (ABNORMAL) Hemoglobin A1c (02/14/2021 1:28 PM DIRECTOR OF CONSTRUCTION) Hgb A1C 6.3(H) 4.0 - 5.6 % [facility] Estimated Average Glucose 134 mg/dL [facility] Comment: The ADA recommends reporting an estimated Average Glucose (eAG) with all Hemoglobin A1c results using the equation derived from a study of 507 normal and diabetic adults. Minority populations were underrepresented and children were not included. (Diabetes Care 2020; 43(S1): S66-S76). The eAG is not equivalent to a fasting glucose. Blood 02/14/2021 1:28 PM DIRECTOR OF CONSTRUCTION 02/14/2021 2:08 PM DIRECTOR OF CONSTRUCTION Notinfile Unknown LAB BLOOD ORDERABLES Final Res ult Performing Organization Address [facility] de Phone Number [facility] [place] [address] * (ABNORMAL) Serum lipid panel (08/09/2015 3:53 PM CDT) Cholesterol 251(H) 100 - 199 mg/dl HISTORICAL RESULTS Triglycerides 279(H) 0 - 149 mg/dl HISTORICAL RESULTS HDL 40 >39 mg/dl HISTORICAL RESULTS Comment: According to ATP-III Guidelines, HDL-C >59 mg/dL is considered a negative risk factor for CHD. VLDL 56(H) 5 - 40 mg/dl HISTORICAL RESULTS LDL 155(H) 0 - 99 mg/dl HISTORICAL RESULTS Serum 08/09/2015 3:53 PM CDT us Historical Provider LAB BLOOD ORDERABLES Amanda boyd Result HISTORICAL RESULTS from Last 3 Months or Most Recently Relevant to Health Maintenance Additional Health Concerns Infection Onset Date Last Indicated Ilsa auris, Exposure Comment:Patient exposed to C. Auris positive patient on 09/17/24. Please contact infection prevention for instructions on obtaining surveillance cultures. - Re-admitted greater or equal to 7 days collect 1 swab. -If possible, can collect in outpatient setting. 09/17/2024 09/30/2024 Insurance [facility] CMR Advance Directives For more information, please contact: [phone] * Full Code (Latest Code Status on File) Date Activated Date Inactivated Comments 09/15/2024 7:17 PM 09/18/2024 3:02 PM * Full Code Date Activated Date Inactivated Comments 02/24/2021 5:01 AM 02/27/2021 2:01 AM Care Teams Living Specialist Relationship Specialty Start Date End Date Malick Li MD [address] [place] [address] PCP - General Internal Medicine 04/21/20
--- OUTSIDE RECORDS SUMMARY | 2024-10-17 11:47 | XMS_ITS | Encounter Summary ---
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
--- OUTSIDE RECORDS SUMMARY | 2024-10-17 11:47 | XMS_ITS | Clinical Summary ---
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 Glucose intolerance 06/21/2023 Fever 06/21/2023 [...] (12/31/2020): Added automatically from request for surgery [id number] Sensorineural hearing loss ( SNHL) of right ear with restricted hearing of left ear 05/04/2020 Mixed conductive and sensori neural hearing loss of left ear with restricted hearing of right ear 05/04/2020 Encounters Date Type Department Care Team Description 10/15/2024 Telephone [facility] Cardiology [address] 8th [place] [address] [place] [address] Sami Narayanan MD PhD 10/13/2024 2:45 PM CDT Office Visit [facility] Cardiology [address] 8th [place] [address] [place] [address] Katelin Bates NP Typical atrial flutter (HCC) (Primary Dx) 10/13/2024 Results Follow-Up [facility] Cardiology [address] 8th [place] [address] [place] [address] Katelin Bates NP ECG 12 lead 09/15/2024 7:04 PM CDT - 09/18/2024 11:01 AM CDT Hospital Encounter [facility] [address] [place] [address] Sami Narayanan MD PhD Vikas Gaytan MD Aldiabat, Mohammad Awad Yousef, MD Discharge Disposition: Discharge to home or self care 09/15/2024 Telephone [facility] Bed Planning [address] [place] [address] Shannon Cuadra, JERALD 09/08/2024 Telephone [facility] ADMIT [address] [place] [address] Maria Del Rosario Martinez, JERALD 09/08/2024 Telephone [facility] Cardiology [address] [place] [address] 8th [place] [address] [place] [address] Corina Boo 08/11/2024 Telephone [facility] Cardiology [address] [place] [address] 8th [place] [address] [place] [address] Sami Narayanan MD PhD 08/08/2024 Telephone [facility] Cardiology [facility] [facility] 8th [place] [address] [place] [address] Sami Narayanan MD PhD 07/29/2024 1:00 PM CDT Office Visit [facility] Neuro Sleep [address] [facility] 6th Floor [address] [place] [phone] Ricardo Rutherford PA TIANA (obstructive sleep apnea) (Primary Dx); Chronic insomnia; S/P placement of hypoglossal nerve stimulator 07/24/2024 2:30 PM CDT Office Visit [facility] Neuro Muscle [address] 6th [place] [address] [place] [phone] Karen Mora MD GBS (Guillain La Loma syndrome) 07/24/2024 Telephone [facility] Cardiology [address] 8th [place] [address] [place] [phone] Sami Narayanan MD PhD 07/23/2024 12:15 PM CDT Office Visit [facility] Cardiology [address] 8th [place] [address] [place] [address] Sami Narayanan MD PhD Paroxysmal atrial fibrillation (HCC) (Primary Dx); Typical atrial flutter (HCC) 07/23/2024 Results Follow-Up [facility] Cardiology [facility] [address] [place] [phone] Sami Narayanan MD PhD ECG 12 lead from Last 3 Months Immunizations Immunization Administration Dates Next Due Influenza, Quadrivalent, Spl it, Preservative Free, Intramuscular 12/14/2019,01/06/2019 Influenza, Trivalent, IM (MDV) 12/23/2020 Pneumococcal Conjugate PCV 13 2018 Pneumococcal Polysaccharide PPV23 03/01/2016 ZOSTER Recombinant 08/16/2020,2018 Surgical History Surgery Date Site/Laterality Comments INGUINAL HERNIA REPAIR 03/26/1999 - 03/25/2000 Bilateral CARDIAC ELECTROPHYSIOLOGY MA PPING AND ABLATION 03/26/2020 - 03/25/2021 Medical History Medical History Date Comments High cholesterol Atrial fibrillation (HCC) Sleep apnea C. 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 Gender Identity Not on file Sexual Orientation Not on file Obstetrics History Last Filed Vital Signs Vital Sign Reading [...] 10/13/2024 2:42 PM CDT Plan of Treatment Health Maintenance Due Date Last Done Comments Colon Cancer Screening-Colonoscopy 1965 Depression Screening 1965 Prostate Cancer Screening-PSA 1965 Dilated Eye Exam 1965 Foot Exam 1965 DTaP/Tdap/Td Vaccine (1 - Tdap) 1976 Regular Well Visit/Exam 18-64 1983 Lipid Panel 08/08/2016 08/09/2015, 07/08/2009 Hemoglobin A1C 08/14/2021 02/14/2021, 02/14/2021 Albumin Creatinine Ratio, Urine 02/14/2022 Pneumococcal vaccine <65 (3 of 3 - PCV20 or PCV21) 2023 2018, 03/01/2016 Covid-19 Vaccine (4 - 2023-2 5 season) 2023 12/23/2020, 06/15/2020, 05/25/2020 Lung Cancer Screening 11/20/2024 11/20/2023, 023 Influenza Vaccine (#1) 2024 , 12/13/2022, 12/23/2020, Additional history exists eGFR 09/18/2025 09/18/2024, 08/25, 09/16/2024, Additional history exists Zoster Vaccine Completed 08/16/2020, 2018 Hepatitis C Screening Completed 02/14/2021 Hepatitis B Screening Completed 09/18/2024 , 07/03/2024, 06/13/2024 Medical Devices Implanted Type Area Engineering Production Worker Device Identifier Shelf Expiration Date Model / Serial / Lot [employer] [id number] System 6-12fr Mvp Venous Closure Vascade - [id number] - [id number] Implanted:Qty: 1 on 01/28/2021 by Jeramie Caban MD at [facility] Collagen Right: Groin [employer] 10/07/2022 800-612C- 10U / [id number] / [employer] [id number] System 6-12fr Mvp Venous Closure Vascade - [id number] Implanted:Qty: 1 on 01/28/2021 by Jeramie Caban MD at [facility] Collagen Right: Groin [employer] 11/10/2022 800-612C- 10U / / [id number] 30C [employer] [id number] System 6-12fr Mvp Venous Closure Vascade - [id number] - [id number] Implanted:Qty: 1 on 01/28/2021 by Jeramie Caban MD at [facility] Collagen Left: Groin [employer] 11/10/2022 800-612C- 10U / [id number] / [id number] 30C [employer] [id number] Device Closure Vascade Od5 Fr Femoral Artery - [id number] - [id number] Implanted:Qty: 1 on 01/28/2021 by Jeramie Caban MD at [facility] Collagen Left: Groin [employer] 10/11/2022 [id number] -[id number] / [id number] / [id number] 720A [employer] Inspire 3 Electrode Cuff Tunnel Mendez Lead Neurostimulator Sterile 4063 - [id number] - [id number] Implanted:Qty: 1 on 09/28/2022 by Omar Freeman MD at [facility] Right: Neck [employer] 06/11/2025 4063 / [id number] / [employer] Lead Neurostimulator Sleep Apnea Thoracic Permanent Respiratory Sensing Inspire 43cm 4340 - [id number] - [id number] Implanted:Qty: 1 on 09/28/2022 by Omar Freeman MD at [facility] Right: Chest [employer] 07/24/2025 4340 / [id number] / [employer] Inspire Generator 3028 - [id number] - [id number] Implanted:Qty: 1 on 09/28/2022 by Omar Freeman MD at [facility] Right: Chest [employer] 06/08/2025 3028 / [id number] C / Procedures Procedure Name Priority Date/Time [...] HEPATITIS PANEL, ACUTE STAT 02/14/2021 6:52 PM SLITTER SCORER CUT OFF OPERATOR ALBUMIN CREATININE RATIO, URINE STAT 02/14/2021 6:52 PM SLITTER SCORER CUT OFF OPERATOR HEMOGLOBIN A1C STAT 02/14/2021 1:28 PM SLITTER SCORER CUT OFF OPERATOR SERUM LIPID PANEL Routine 08/09/2015 3:5 3 PM CDT from Last 3 Months or Most Recently Relevant to Health Maintenance Results * ECG 12 lead (10/13/2024 2:53 PM CDT) us Katelin Bates NP ECG ORDERABLES Edited R esult - Final * ECG 12 lead (09/18/2024 10:11 AM CDT) Ventricular Rate EKG/Min 55 BPM [facility] Atrial Rate 55 BPM [facility] VT-Interval (MSEC) 130 ms [facility] QRS-Interval (MSEC) 78 ms [facility] QT-Interval (MSEC) 450 ms [facility] QTc 430 ms [facility] R Parker 189 degrees [facility] T Parker 155 degrees [facility] Diagnosis Atrial-sensed ventricular-pa rafa rhythm Abnormal ECG When compared with ECG of 17-SEP-2024 10:34, Electronic ventricular pacemaker has replaced Sinus rhythm Confirmed by Natacha NAVAS, [facility] ([id number]) on 09/19/2024 11:16:22 AM [facility] 09/18/2024 10:1 1 AM CDT 09/19/2024 11:16 AM CDT us Shelly Ramon MD ECG ORDERABLES Final Result [facility] * (ABNORMAL) eGFR (09/18/2024 3:20 [...] MD LAB BLOOD ORDERA BLES Final Result [facility] Department of [address] [place] [place] [address] * Magnesium (09/18/2024 3:20 AM CDT) Magnesium 2.2 1.4 - 2.5 mg/dL Blood 09/18/2024 3:20 AM CDT 09/18/2024 5:01 AM CDT Vikas Gaytan MD LAB BLOOD ORDERA BLES Final Result [facility] [place] [address] [place] [address] * (ABNORMAL) Basic metabolic panel (09/18/2024 3:20 AM CDT) Sodium 139 135 - 145 mmol/L Potassium, pl 4.2 3.3 - 4.9 mmol/L [facility] Chloride 105 97 - 110 mmol/L [facility] CO2 25 22 - 32 mmol/L [facility] Anion gap 9 2 - 15 mmol/L [facility] BUN 20 6 - 25 mg/dL [facility] Creatinine 1.52(H) 0.80 - 1.30 mg/dL [facility] Glucose 128 70 - 199 mg/dL [facility] Comment: Interpretive Data Fasting glucose >/= 126 [...] 2022. Calcium 8.9 8.5 - 10.3 mg/dL [facility] Blood 09/18/2024 3:20 AM CDT 09/18/2024 5:01 AM CDT Vikas Gaytan MD LAB BLOOD ORDERA BLES Final Result [facility] Department [place] [address] * ECG 12 lead (09/17/2024 10:34 AM CDT) Ventricular Rate EKG/Min 59 BPM [facility] Atrial Rate 59 BPM [facility] VT-Interval (MSEC) 140 ms [facility] QRS-Interval (MSEC) 72 ms [facility] QT-Interval (MSEC) 414 ms [facility] QTc 409 ms [facility] P Parker 15 degrees [facility] R Parker -15 degrees [facility] T Parker 14 degrees [facility] Diagnosis Sinus bradycardia with Premature atrial complexes Otherwise normal ECG No previous ECGs available Confirmed by HIEU ALCANTAR M.D ([id number]) on 09/18/2024 10:12:19 AM [facility] 09/17/2024 10:3 4 AM CDT 09/18/2024 10:12 AM CDT Shelly Ramon MD ECG ORDERABLES Final Result [facility] * (ABNORMAL) eGFR (09/17/2024 3:19 [...] 3:19 AM CDT 09/17/2024 4:29 AM CDT us Vikas Gaytan MD LAB BLOOD ORDERA BLES Final Result Performing Organization Address City/[facility]/ZIP Co de Phone Number KEZIA FITZPATRICK [facility] Department [place] [address] * Magnesium (09/17/2024 3:19 AM CDT) Magnesium 2.1 1.4 - 2.5 mg/dL Blood 09/17/2024 3:19 AM CDT 09/17/2024 4:29 AM CDT Vikas Gaytan MD LAB BLOOD ORDERA BLES Final Result [facility] Department [place] [address] * (ABNORMAL) Basic metabolic panel (09/17/2024 3:19 AM CDT) [facility] Sodium 139 135 - 145 mmol/L Potassium, pl 4.6 3.3 - 4.9 mmol/L [facility] Chloride 105 97 - 110 mmol/L [facility] CO2 25 22 - 32 mmol/L [facility] Anion gap 9 2 - 15 mmol/L [facility] BUN 18 6 - 25 mg/dL [facility] Creatinine 1.40(H) 0.80 - 1.30 mg/dL [facility] Glucose 106 70 - 199 mg/dL [facility] Comment: Interpretive Data Fasting glucose >/= 126 [...] 2022. Calcium 9.1 8.5 - 10.3 mg/dL [facility] Blood 09/17/2024 3:19 AM CDT 09/17/2024 4:29 AM CDT Vikas Gaytan MD LAB BLOOD ORDERA BLES Final Result Performing Organization Address City/[facility]/ZIP Co de Phone Number [facility] Department [place] [address] * (ABNORMAL) eGFR (09/16/2024 3:40 AM CDT) Pathologist [facility] eGFR 53(L) >=60 mL/min/1. 73 m2 Comment: [...] MD LAB BLOOD ORDER GENESIS Final Result [facility] Department [place] [address] * Differential, auto (09/16/2024 3:40 AM CDT) [facility] Neutrophil abs 3.77 1.50 - 6.50 K/cumm Imm gran abs 0.01 0.00 - 0.10 K/cumm [facility] Lymphocyte abs 1.69 0.80 - 3.30 K/cumm [facility] Monocyte abs 0.50 0.20 - 0.80 K/cumm [facility] Eosinophil abs 0.17 0.00 - 0.50 K/cumm [facility] Basophil abs 0.03 0.00 - 0.10 K/cumm [facility] Neutrophil pct 61.0 % [facility] Comment: Interpretive Data Percent cell count reference ranges are not reported, since discordance with absolute values may lead to misinterpretation of CBC data. Current Interpretive Data was last revised on 2017. Imm gran pct 0.2 % [facility] Comment: Interpretive Data Percent cell count reference ranges are not reported, since discordance with absolute values may lead to misinterpretation of CBC data. Current Interpretive Data was last revised on 2017. Lymphocyte pct 27.4 % KEZIA [facility] Comment: Interpretive Data Percent cell count reference ranges are not reported, since discordance with absolute values may lead to misinterpretation of CBC data. Current Interpretive Data was last revised on 2017. Monocyte pct 8.1 % [facility] Comment: Interpretive Data Percent cell count reference ranges are not reported, since discordance with absolute values may lead to misinterpretation of CBC data. Current Interpretive Data was last revised on 2017. Eosinophil pct 2.8 % KEZIA [facility] Comment: Interpretive Data Percent cell count reference ranges are not reported, since discordance with absolute values may lead to misinterpretation of CBC data. Current Interpretive Data was last revised on 2017. Basophil pct 0.5 % [facility] Comment: Interpretive Data Percent cell count reference ranges are not reported, since discordance with absolute values may lead to misinterpretation of CBC data. Current Interpretive Data was last revised on 2017. Blood 09/16/2024 3:40 AM CDT 09/16/2024 5:09 AM CDT Shelly Ramon MD LAB BLOOD ORDER GENESIS Final Result [facility] Department [place] [address] * (ABNORMAL) CBC with auto differential (09/16/2024 3:40 AM CDT) WBC 6.17 3.80 - 9.90 K/cumm Hgb 14.5 13.0 - 17.5 g/dL KEZIA [facility] Hct 42.8 38.9 - 50.3 % [facility] Plt 146(L) 150 - 400 K/cumm [facility] MPV 11.2 9.1 - 12.3 fL [facility] RBC 4.69 4.30 - 5.80 M/cumm [facility] MCV 91.3 81.3 - 96.4 fL [facility] MCH 30.9 27.1 - 33.3 pg [facility] MCHC 33.9 32.3 - 35.7 g/dL [facility] RDW CV 14.0 11.1 - 14.9 % [facility] RDW SD 46.4 35.7 - 48.1 fL [facility] NRBC abs 0.00 0.00 - 0.01 K/cumm [facility] Blood 09/16/2024 3:40 AM CDT 09/16/2024 5:09 AM CDT Shelly Ramon MD LAB BLOOD ORDER GENESIS Final Result [facility] Department of [place] [address] [place] [address] * Phosphorus (09/16/2024 3:40 AM CDT) Phosphorus, pl 3.9 2.3 - 4.5 mg/dL Blood 09/16/2024 3:40 AM CDT 09/16/2024 5:08 AM CDT Shelly Ramon MD LAB BLOOD ORDER GENESIS Final Result [facility] [place] [address] [place] [address] * Magnesium (09/16/2024 3:40 AM CDT) Magnesium 2.2 1.4 - 2.5 mg/dL Blood 09/16/2024 3:40 AM CDT 09/16/2024 5:08 AM CDT Shelly Ramon MD LAB BLOOD ORDER GENESIS Final Result [facility] Department [place] [address] * (ABNORMAL) Comprehensive metabolic panel (09/16/2024 3:40 AM CDT) Sodium 140 135 - 145 mmol/L Potassium, pl 4.6 3.3 - 4.9 mmol/L [facility] Chloride 105 97 - 110 mmol/L [facility] CO2 25 22 - 32 mmol/L [facility] Anion gap 10 2 - 15 mmol/L [facility] BUN 16 6 - 25 mg/dL [facility] Creatinine 1.50(H) 0.80 - 1.30 mg/dL [facility] Glucose 89 70 - 199 mg/dL [facility] Comment: Interpretive Data Fasting glucose >/= 126 [...] 2022. Calcium 9.2 8.5 - 10.3 mg/dL [facility] Bilirubin, total 0.8 0.1 - 1.2 mg/dL [facility] Protein, pl 6.8 6.5 - 8.5 g/dL [facility] Albumin 4.0 3.5 - 5.0 g/dL [facility] Alk phos 78 40 - 130 Units/L [facility] ALT 33 7 - 55 Units/L [facility] AST 31 10 - 50 Units/L [facility] Blood 09/16/2024 3:40 AM CDT 09/16/2024 5:08 AM CDT Shelly Ramon MD LAB BLOOD ORDER GENESIS Final Result Performing Organization Address City/[facility] Co de Phone Number KEZIA [facility] Department [place] [address] * (ABNORMAL) eGFR (09/15/2024 10:31 PM CDT) [...] ORDER GENESIS Final Result Performing Organization Address City/[facility]/ZIP Co de Phone Number [facility] Department [place] [address] * Differential, auto (09/15/2024 10:31 PM CDT) Pathologist [facility] Neutrophil abs 4.05 1.50 - 6.50 K/cumm Imm gran abs 0.03 0.00 - 0.10 K/cumm [facility] Lymphocyte abs 1.99 0.80 - 3.30 K/cumm [facility] Monocyte abs 0.53 0.20 - 0.80 K/cumm [facility] Eosinophil abs 0.17 0.00 - 0.50 K/cumm [facility] Basophil abs 0.02 0.00 - 0.10 K/cumm [facility] Neutrophil pct 59.7 % [facility] Comment: Interpretive Data Percent cell count reference ranges are not reported, since discordance with absolute values may lead to misinterpretation of CBC data. Current Interpretive Data was last revised on 2017. Imm gran pct 0.4 % [facility] Comment: Interpretive Data Percent cell count reference ranges are not reported, since discordance with absolute values may lead to misinterpretation of CBC data. Current Interpretive Data was last revised on 2017. Lymphocyte pct 29.3 % [facility] Comment: Interpretive Data Percent cell count reference ranges are not reported, since discordance with absolute values may lead to misinterpretation of CBC data. Current Interpretive Data was last revised on 2017. Monocyte pct 7.8 % [facility] Comment: Interpretive Data Percent cell count reference ranges are not reported, since discordance with absolute values may lead to misinterpretation of CBC data. Current Interpretive Data was last revised on 2017. Eosinophil pct 2.5 % [facility] Comment: Interpretive Data Percent cell count reference ranges are not reported, since discordance with absolute values may lead to misinterpretation of CBC data. Current Interpretive Data was last revised on 2017. Basophil pct 0.3 % [facility] Comment: Interpretive Data Percent cell count reference ranges are not reported, since discordance with absolute values may lead to misinterpretation of CBC data. Current Interpretive Data was last revised on 2017. Blood 09/15/2024 10:3 1 PM CDT 09/15/2024 11:27 PM CDT us Shelly Ramon MD LAB BLOOD ORDER GENESIS Final Result [facility] Department [place] [address] * (ABNORMAL) CBC with auto differential (09/15/2024 10:31 PM CDT) [facility] WBC 6.79 3.80 - 9.90 K/cumm Hgb 14.1 13.0 - 17.5 g/dL [facility] Hct 40.7 38.9 - 50.3 % [facility] Plt 145(L) 150 - 400 K/cumm [facility] MPV 11.3 9.1 - 12.3 fL [facility] RBC 4.59 4.30 - 5.80 M/cumm [facility] MCV 88.7 81.3 - 96.4 fL [facility] MCH 30.7 27.1 - 33.3 pg [facility] MCHC 34.6 32.3 - 35.7 g/dL [facility] RDW CV 13.9 11.1 - 14.9 % [facility] RDW SD 45.0 35.7 - 48.1 fL [facility] NRBC abs 0.00 0.00 - 0.01 K/cumm [facility] Blood 09/15/2024 10:3 1 PM CDT 09/15/2024 11:27 PM CDT Shelly Ramon MD LAB BLOOD ORDER GENESIS Final Result [facility] Department [place] [address] * aPTT (09/15/2024 10:31 PM CDT) [facility] aPTT 34 28 - 38 sec Comment: Interpretive Data Heparin therapeutic range: 66.0 - 100.0 seconds. Range based on correlation with therapeutic heparin activity range of 0.3 - 0.7 Units/mL. Current interpretive data was last revised on 2022. Blood 09/15/2024 10:3 1 PM CDT 09/15/2024 11:27 PM CDT Shelly Ramon MD LAB BLOOD ORDER GENESIS Final Result Performing Organization Address City/State/[facility] Co de Phone Number [facility] [place] [address] * (ABNORMAL) Protime-INR (09/15/2024 10:31 PM CDT) Pathologist [facility] PT 15.3(H) 9.7 - 13.0 sec INR 1.41(H) 0.90 - 1.20 [facility] Comment: Interpretive data Oral anticoagulant therapeutic [...] ORDER GENESIS Final Result Performing Organization Address City/[facility] Co de Phone Number [facility] Department [place] [address] * TSH (09/15/2024 10:31 PM CDT) Pathologist [facility] Thyroid Stimulating Hormone 2.42 0.30 - 4.20 mcIUnit/mL Blood 09/15/2024 10:3 1 PM CDT 09/15/2024 11:26 PM CDT Shelly Ramon MD LAB BLOOD ORDER GENESIS Final Result Performing Organization Address City/[facility] Co de Phone Number [facility] [place] [address] * Phosphorus (09/15/2024 10:31 PM CDT) Pathologist [facility] Phosphorus, pl 2.7 2.3 - 4.5 mg/dL Blood 09/15/2024 10:3 1 PM CDT 09/15/2024 11:26 PM CDT Shelly Ramon MD LAB BLOOD ORDER GENESIS Final Result Performing Organization Address City/[facility]/ZIP Co de Phone Number [facility] Department [place] [address] * Magnesium (09/15/2024 10:31 PM CDT) Pathologist [facility] Magnesium 2.4 1.4 - 2.5 mg/dL Blood 09/15/2024 10:3 1 PM CDT 09/15/2024 11:26 PM CDT Shelly Ramon MD LAB BLOOD ORDER GENESIS Final Result Performing Organization Address City/[facility] de Phone Number [facility] Department [place] [address] * (ABNORMAL) Comprehensive metabolic panel (09/15/2024 10:31 PM CDT) [facility] Sodium 142 135 - 145 mmol/L Potassium, pl 4.2 3.3 - 4.9 mmol/L [facility] Chloride 105 97 - 110 mmol/L [facility] CO2 29 22 - 32 mmol/L [facility] Anion gap 8 2 - 15 mmol/L [facility] BUN 16 6 - 25 mg/dL [facility] Creatinine 1.45(H) 0.80 - 1.30 mg/dL [facility] Glucose 127 70 - 199 mg/dL [facility] Comment: Interpretive Data Fasting glucose >/= 126 [...] Calcium 9.3 8.5 - 10.3 mg/dL [facility] Bilirubin, total 1.0 0.1 - 1.2 mg/dL [facility] Protein, pl 6.6 6.5 - 8.5 g/dL [facility] Albumin 4.0 3.5 - 5.0 g/dL [facility] Alk phos 72 40 - 130 Units/L [facility] ALT 35 7 - 55 Units/L [facility] AST 28 10 - 50 Units/L [facility] [facility] Blood 09/15/2024 10:3 1 PM CDT 09/15/2024 11:26 PM CDT Shelly Ramon MD LAB BLOOD ORDER GENESIS Final Result [facility] Department [place] [address] * ECG 12 lead (07/23/2024 12:01 PM [...] screening) Electronically signed by: Malick Castillo M.D. Malick Li MD IMG CT PROCEDURES Final Re sult * Albumin Creatinine Ratio, Urine (02/14/2021 6:52 PM SLITTER SCORER CUT OFF OPERATOR) Albumin Ur 17.7 mg/L [facility] Comment: Interpretive Data No reference range established. Current interpretive data was last revised 2018. Creatinine Ur 209.0 mg/dL [facility] Comment: Interpretive Data No reference range established. Current interpretive data was last revised 2018. Albumin Creatinine Ratio, Ur 8 1 - 29 mg/g [facility] Urine 02/14/2021 6:52 PM SLITTER SCORER CUT OFF OPERATOR 02/14/2021 6:59 PM SLITTER SCORER CUT OFF OPERATOR Ulysses FUNES LAB URINE ORDERABLES F inal Result [facility] Department [place] [address] * Hepatitis panel, acute (02/14/2021 6:52 PM SLITTER SCORER CUT OFF OPERATOR) Pathologist [facility] Hep A IgM Nonreactive Nonreactive [facility] Comment: Interpretive Data: If Hep A IgM Ab is reported as Equivocal, a new sample should be drawn in two weeks for testing. Current interpretive data was last revised on 19. Hep B core IgM Nonreactive Nonreactive [facility] Comment: Interpretive Data If HepB Core IgM Ab is reported as Equivocal, a new sample should be drawn in two weeks for testing. Current interpretive data was last revised on 19. Hep C Ab Nonreactive Nonreactive [facility] Comment:Antibodies to HCV no t detected. Does NOT exclude the possibility of recent exposure to HCV. HepBsAg Nonreactive Nonreactive [facility] Blood 02/14/2021 6:52 PM SLITTER SCORER CUT OFF OPERATOR 02/14/2021 6:58 PM SLITTER SCORER CUT OFF OPERATOR Ulysses FUNES LAB MICROBIOLOGY - GEN ERAL ORDERABLES Edited Result - Final Performing Organization Address [facility]/ZIP Co de Phone Number [facility] [place] [address] * (ABNORMAL) Hemoglobin A1c (02/14/2021 1:28 PM SLITTER SCORER CUT OFF OPERATOR) Hgb A1C 6.3(H) 4.0 - 5.6 % [facility] Estimated Average Glucose 134 mg/dL [facility] Comment: The ADA recommends reporting an estimated Average Glucose (eAG) with all Hemoglobin A1c results using the equation derived from a study of 507 normal and diabetic adults. Minority populations were underrepresented and children were not included. (Diabetes Care 2020; 43(S1): S66-S76). The eAG is not equivalent to a fasting glucose. Blood 02/14/2021 1:28 PM SLITTER SCORER CUT OFF OPERATOR 02/14/2021 2:08 PM SLITTER SCORER CUT OFF OPERATOR Result [facility] us Notinfile Unknown LAB BLOOD ORDERABLES Final Res ult Performing Organization Address [facility] Co de Phone Number KEZIA [facility] Department [place] [address] * (ABNORMAL) Serum lipid panel (08/09/2015 3:53 [...] us Historical Provider LAB BLOOD ORDERABLES Amanda l Result HISTORICAL RESULTS from Last 3 Months [...] collect in outpatient setting. 09/17/2024 09/30/2024 Insurance [facility] CMR Advance Directives For more information, please contact: [phone] * Full Code (Latest Code Status on File) Date Activated Date Inactivated Comments 09/15/2024 7:17 PM 09/18/2024 3:02 PM * Full Code Date Activated Date Inactivated Comments 02/24/2021 5:01 AM 02/27/2021 2:01 AM Care Teams Sole Molder Relationship Specialty Start Date End Date Malick Li MD [address] [place] [address] PCP - General Internal Medicine 04/21/20
--- OUTSIDE RECORDS SUMMARY | 2024-10-17 11:47 | XMS_ITS | Encounter Summary ---
Author Organization [facility] Healthcare Address [address] [place] [address] Care Team Providers Care Welcome Wagon Hostess Name Role Phone Malick Li MD Primary Care Provider [phone]- [phone] Encounter Details Date Type Department Care Team (Late st Contact Info) Description 09/08/[address] [facility] ADMIT [address] [place] [address] Maria Del Rosario Martinez RN Social History Tobacco Use Types Packs/Day [...] making you feel afraid or unsafe? 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
--- OUTSIDE RECORDS SUMMARY | 2024-10-17 11:48 | XMS_ITS | Patient Health Record ---
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 Name Role Phone DahliamarcMalick carter Primary Care Provider Allergies No Known Allergies Results Component Value Reference Range Notes X ray : CHEST PA LATERAL Reviewed date:06/13/2024 06:17:49 AM Interpretation:Chronic Changes, No Active Disease Performing Lab: Notes/Report: Chronic Changes, No Active Disease Electrocardiogram (EKG) Reviewed date:06/13/2024 06:17:49 AM Interpretation:atrial fib with ventricular response of 111 beats per minute, compared to previous EKG atrial fib is new Performing Lab: Notes/Report: atrial fib with ventricular response of 111 beats per minute, compared to previous EKG atrial fib is new Comp. Metabolic Panel (14) Reviewed date:06/13/2024 07:39:34 AM Interpretation: Performing Lab:[facility], [address] [facility], [place], Phone - [phone], Director - Cosme Notes/Report: Clinical Information:SRC:OL Glucose 86 70-99 mg/dL BUN 17 6-24 mg/dL Creatinine 1.47 0.76-1.27 mg/dL eGFR 55 >59 mL/min/1.73 BUN/Creatinine Ratio 12 9-20 Sodium 142 134-144 mmol/L Potassium 4.9 3.5-5.2 mmol/L Chloride 103 96-106 mmol/L Carbon Dioxide, Total 23 20-29 mmol/L Calcium 10.1 8.7-10.2 mg/dL Protein, Total 7.4 6.0-8.5 g/dL Albumin 4.7 3.8-4.9 g/dL Globulin, Total 2.7 1.5-4.5 g/dL Bilirubin, Total 1.0 0.0-1.2 mg/dL Alkaline Phosphatase 87 44-121 IU/L AST (SGOT) 32 0-40 IU/L ALT (SGPT) 39 0-44 IU/L Lipid Panel Reviewed date:06/13/2024 07:39:34 AM Interpretation: Performing Lab:[facility] [place], [address] [place] [address], Phone - [phone], Director - Cosme Notes/Report: Clinical Information:SRC:OL Cholesterol, Total 123 100-199 mg/dL Triglycerides 91 0-149 mg/dL HDL Cholesterol 47 >39 mg/dL VLDL Cholesterol J Luis 17 5-40 mg/dL LDL Chol Calc ([facility]) 59 0-99 mg/dL LDL Calc Comment: SCIENTIFIC RECRUITER Ct/GC PASCUAL, Pharyngeal Reviewed date:06/14/2024 09:37:29 AM Interpretation: Performing Lab:[facility] [place], [address] [place] [address], Phone - [phone], Director - Aide Notes/Report: Clinical Information:SRC:OL C. trachomatis, PASCUAL, Pharyn Negative Negative N. gonorrhoeae, PASCUAL, Pharyn Negative Negative HCV Antibody Reviewed date:06/13/2024 07:39:34 AM Interpretation: Performing Lab:[facility] [place], [address] [place] [address], Phone - [phone], Director - Cosme Notes/Report: Clinical Information:SRC:OL Hep C Virus Ab Non Reactive Non Reactive HCV antibody alone does not differentiate between previously resolved infection and active infection. Equivocal and Reactive HCV antibody results should be followed up with an HCV RNA test to support the diagnosis of active HCV infection. HIV 1/2 Antibody Panel [id number] Reviewed date:06/13/2024 06:17:49 AM Interpretation: Performing Lab:[facility] [address], Phone - [phone], Director - Cosme Notes/Report: Clinical Information:SRC:OL HIV Ab/p24 Ag Screen Non Reactive Non Reactive HIV-1/HIV-2 antibodies and HIV-1 p24 antigen were NOT detected. There is no laboratory evidence of HIV infection. HIV Negative PSA - Prostate-Specific Ag, Serum Reviewed date:06/13/2024 10:20:27 AM Interpretation: Performing Lab:[facility], Phone - [phone], Director - [facility] Notes/Report: Clinical Information:SRC:OL Prostate Specific Ag 4.0 0.0-4.0 ng/mL Raine ECLIA methodology. . According to the [place] [employer], Serum PSA should decrease and remain at undetectable levels after radical prostatectomy. The AUA defines biochemical recurrence as an initial PSA value 0.2 ng/mL or greater followed by a subsequent confirmatory PSA value 0.2 ng/mL or greater. Values obtained with different assay methods or kits cannot be used interchangeably. Results cannot be interpreted as absolute evidence of the presence or absence of malignant disease. Hep A Ab, Total Reviewed date:06/13/2024 07:39:34 AM Interpretation: Performing Lab:[facility] [address], Phone - [phone], Director - [facility] Notes/Report: Clinical Information:SRC:OL Hep A Ab, Total Negative Negative Comment: The HAV total antibody assay detects both IgG and IgM but does not differentiate between them. A negative result suggests susceptibility to infection. A positive result could be due to vaccination, previously resolved infection or active infection. Testing for HAV IgM should be performed if active HAV infection is suspected. [facility] offers profiles that will automatically reflex positive HAV total antibody results to IgM (e.g., panel #[id number] HAV Antibody w/ Rfx). HBsAg Screen Reviewed date:06/13/2024 07:39:34 AM Interpretation: Performing Lab:[facility], Phone - [phone], Director - [facility] Notes/Report: Clinical Information:SRC:OL HBsAg Screen Negative Negative Hep B Surface Ab Reviewed date:06/13/2024 07:39:34 AM Interpretation: Performing Lab:[facility] [address], Phone - [phone], Director - [facility] Notes/Report: Clinical Information:SRC:OL Hep B Surface Ab, Qual Non Reactive Non Reactive: Not immune to HBV infection. Equivocal: Unable to determine if anti-HBs is present at levels consistent with immunity. Reactive: Anti-HBs concentration detected at greater than 10 mIU/mL. Individual is considered to be immune to infection with HBV. RPR Reviewed date:06/13/2024 07:39:34 AM Interpretation: Performing Lab:[facility] [address], Phone - [phone], Director - [facility] Notes/Report: Clinical Information:SRC:OL RPR Non Reactive Non Reactive CBC With Differential/Platel et Reviewed date:06/13/2024 06:17:49 AM Interpretation: Performing Lab:[facility] [place], [address] [place] [address], Phone - [phone], Director - [facility] Notes/Report: Clinical Information:SRC:OL WBC 8.6 3.4-10.8 x10E3/uL RBC 5.92 4.14-5.80 x10E6/uL Hemoglobin 18.1 13.0-17.7 g/dL Hematocrit 55.0 37.5-51.0 % MCV 93 79-97 fL MCH 30.6 26.6-33.0 pg MCHC 32.9 31.5-35.7 g/dL RDW 13.4 11.6-15.4 % Platelets 189 150-450 x10E3/uL Neutrophils 78 Not Estab. % Lymphs 15 Not Estab. % Monocytes 5 Not Estab. % Eos 1 Not Estab. % Basos 1 Not Estab. % Immature Cells SCIENTIFIC RECRUITER Neutrophils (Absolute) 6.7 1.4-7.0 x10E3/uL Lymphs (Absolute) 1.3 0.7-3.1 x10E3/uL Monocytes(Absolute) 0.4 0.1-0.9 x10E3/uL Eos (Absolute) 0.1 0.0-0.4 x10E3/uL Baso (Absolute) 0.0 0.0-0.2 x10E3/uL Immature Granulocytes 0 Not Estab. % Immature Grans (Abs) 0.0 0.0-0.1 x10E3/uL NRBC SCIENTIFIC RECRUITER Hematology Comments: SCIENTIFIC RECRUITER Hep B Core Ab, Tot Reviewed date:06/13/2024 07:39:33 AM Interpretation: Performing Lab:[facility] [place], [address] [place] [address], Phone - [phone], Director - [facility] Notes/Report: Clinical Information:SRC:OL Hep B Core Ab, Tot Negative Negative Occult Blood, Fecal, IA Reviewed date:06/12/2024 12:31:20 PM Interpretation:Negative Performing Lab: Notes/Report: Negative Urinalysis, Routine Reviewed date:06/12/2024 11:29:04 AM Interpretation: Performing Lab: Notes/Report: Specific [place] 1.020 pH 5 Comp. Metabolic Panel (14) Reviewed date:03/13/2024 06:16:56 AM Interpretation: Performing Lab:[facility] [employer] [address] [place] [address], Phone - [phone], [facility] - [facility] Notes/Report: Glucose 102 70-99 mg/dL BUN 19 6-24 mg/dL Creatinine 1.35 0.76-1.27 mg/dL eGFR 60 >59 mL/min/1.73 BUN/Creatinine Ratio 14 9-20 Sodium 141 134-144 mmol/L Potassium 5.0 3.5-5.2 mmol/L Chloride 103 96-106 mmol/L Carbon Dioxide, Total 26 20-29 mmol/L Calcium 9.6 8.7-10.2 mg/dL Protein, Total 6.7 6.0-8.5 g/dL Albumin 4.4 3.8-4.9 g/dL Globulin, Total 2.3 1.5-4.5 g/dL Bilirubin, Total 0.9 0.0-1.2 mg/dL Alkaline Phosphatase 85 44-121 IU/L AST (SGOT) 25 0-40 IU/L ALT (SGPT) 31 0-44 IU/L Lipid Panel Reviewed date:03/13/2024 06:16:56 AM Interpretation: Performing Lab:[facility] [employer] [address] [place] [address], Phone - [phone], Director - [facility] Notes/Report: Cholesterol, Total 110 100-199 mg/dL Triglycerides 90 0-149 mg/dL HDL Cholesterol 36 >39 mg/dL VLDL Cholesterol J Luis 18 5-40 mg/dL LDL Chol Calc ([facility]) 56 0-99 mg/dL LDL Calc Comment: SCIENTIFIC RECRUITER CBC With Differential/Platel et Reviewed date:03/13/2024 06:16:56 AM Interpretation: Performing Lab:[facility] [employer] [address] [place], [place] [address]ox [facility], Phone - [phone], Director - Matthewprince Notes/Report: WBC 5.8 3.4-10.8 x10E3/uL RBC 5.16 4.14-5.80 x10E6/uL Hemoglobin 15.4 13.0-17.7 g/dL Hematocrit 47.1 37.5-51.0 % MCV 91 79-97 fL MCH 29.8 26.6-33.0 pg MCHC 32.7 31.5-35.7 g/dL RDW 12.7 11.6-15.4 % Platelets 160 150-450 x10E3/uL Neutrophils 63 Not Estab. % Lymphs 28 Not Estab. % Monocytes 7 Not Estab. % Eos 2 Not Estab. % Basos 0 Not Estab. % Immature Cells SCIENTIFIC RECRUITER Neutrophils (Absolute) 3.7 1.4-7.0 x10E3/uL Lymphs (Absolute) 1.6 0.7-3.1 x10E3/uL Monocytes(Absolute) 0.4 0.1-0.9 x10E3/uL Eos (Absolute) 0.1 0.0-0.4 x10E3/uL Baso (Absolute) 0.0 0.0-0.2 x10E3/uL Immature Granulocytes 0 Not Estab. % Immature Grans (Abs) 0.0 0.0-0.1 x10E3/uL NRBC SCIENTIFIC RECRUITER Hematology Comments: SCIENTIFIC RECRUITER Comp. Metabolic Panel (14) Reviewed date:12/12/2023 08:29:25 AM Interpretation: Performing Lab:[facility] [place], [address] [place] [address], Phone - [phone], Director - Cosme Notes/Report: Glucose 61 70-99 mg/dL BUN 22 6-24 mg/dL Creatinine 1.49 0.76-1.27 mg/dL eGFR 54 >59 mL/min/1.73 BUN/Creatinine Ratio 15 9-20 Sodium 141 134-144 mmol/L Potassium 4.4 3.5-5.2 mmol/L Chloride 102 96-106 mmol/L Carbon Dioxide, Total 21 20-29 mmol/L Calcium 9.6 8.7-10.2 mg/dL Protein, Total 6.9 6.0-8.5 g/dL Albumin 4.4 3.8-4.9 g/dL Globulin, Total 2.5 1.5-4.5 g/dL Bilirubin, Total 0.8 0.0-1.2 mg/dL Alkaline Phosphatase 90 44-121 IU/L AST (SGOT) 21 0-40 IU/L ALT (SGPT) 24 0-44 IU/L Lipid Panel Reviewed date:12/12/2023 08:29:25 AM Interpretation: Performing Lab:[facility] [place], [address] [facility], Phone - [phone], Director - [facility] Notes/Report: Cholesterol, Total 123 100-199 mg/dL Triglycerides 283 0-149 mg/dL HDL Cholesterol 36 >39 mg/dL VLDL Cholesterol J Luis 43 5-40 mg/dL LDL Chol Calc ([facility]) 44 0-99 mg/dL LDL Calc Comment: SCIENTIFIC RECRUITER CBC With Differential/Platel et Reviewed date:12/12/2023 06:20:22 AM Interpretation: Performing Lab:[facility] [place], [address] [facility], Phone - [phone], Director - [facility] Notes/Report: WBC 6.6 3.4-10.8 x10E3/uL RBC 5.50 4.14-5.80 x10E6/uL Hemoglobin 17.0 13.0-17.7 g/dL Hematocrit 52.0 37.5-51.0 % MCV 95 79-97 fL MCH 30.9 26.6-33.0 pg MCHC 32.7 31.5-35.7 g/dL RDW 13.8 11.6-15.4 % Platelets 168 150-450 x10E3/uL Neutrophils 61 Not Estab. % Lymphs 28 Not Estab. % Monocytes 8 Not Estab. % Eos 2 Not Estab. % Basos 1 Not Estab. % Immature Cells SCIENTIFIC RECRUITER Neutrophils (Absolute) 4.0 1.4-7.0 x10E3/uL Lymphs (Absolute) 1.8 0.7-3.1 x10E3/uL Monocytes(Absolute) 0.5 0.1-0.9 x10E3/uL Eos (Absolute) 0.1 0.0-0.4 x10E3/uL Baso (Absolute) 0.0 0.0-0.2 x10E3/uL Immature Granulocytes 0 Not Estab. % Immature Grans (Abs) 0.0 0.0-0.1 x10E3/uL NRBC SCIENTIFIC RECRUITER Hematology Comments: SCIENTIFIC RECRUITER Reason For Referral No Information Medications Medication SIG (Take, Route, Frequency, Duration) Notes Start Date End Date Status valACYclovir HCl 1 GM 1 tablet Orally tw ice per day Active ALPRAZolam 0.25 MG 1 tablet Orally at bedtime Active Rosuvastatin Calcium 40 MG TAKE 1 TABLET BY MOUTH EVERY DAY Active Eliquis 5 MG 1 tab Orally Twice a day Active Tikosyn 250 MCG 1 capsule Orally Twi ce a day 09/18/2024 Active buPROPion HCl ER (SR) 100 MG 1 tablet in the morning Orally Once a day for 30 days 04/20/2024 Active Metoprolol Succinate ER 50 MG 1 tablet Orally Once a day for 90 days Active Immunizations Vaccine Route Administration Date Status Comme [facility] Covid-19 Vaccine, mRNA (Formula) IM Intramuscular 12/11/2023 Administered Flucelvax Quadrivalent (Influenza Vaccine) Unknown 2018 Refused Flulaval Unknown 02/14/2019 Refused Flulaval IM Intramuscular 12/23/2020 Administered Flulaval IM Intramuscular 12/13/2022 Administered Flulaval Quadrivalent (Influenza Vaccine) IM Intramuscular 12/11/2023 Administered Hep A, adult (Vaqta, Havrix) IM Intramuscular 06/13/2024 Administered Hep B, Adult (Recombivax, Energix) IM Intramuscular 06/13/2024 Administered HepB-CpG (Heplisav-B) IM Intramuscular 07/03/2024 Administ ered HepB-CpG (Heplisav-B) IM Intramuscular 09/18/2024 Administ ered Herpes Zoster (Shingrix) IM Intramuscular 2018 Admin istered Herpes Zoster (Shingrix) IM Intramuscular 08/16/2020 Admin istered Schoology COVID-19 Vaccine Unknown 12/23/2020 Administered Pneumococcal conjugate PCV13 (Avufhwz35) IM Intramuscular 2018 Administered Pneumococcal polysaccharide PPV23 (Pneumovax 23) IM Intramuscular 03/01/2016 Administered Social History Sex Assigned At : Social History Observation Description Sex Assigned At Male Problems Problem Type SNOMED Code ICD Code Onset Dates Problem Status W/U Status Risk Notes Problem 62499019 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 Problem 263249352 Typical atrial flutter (I48.3) Active confirmed Problem 69094536370809044 Atypical atria l flutter (I48.4) Active confirmed Problem 135566678 Type 2 diabetes mellitus without complication, without long-term current use of insulin (E11.9) Active confirmed Problem Lower urinary tract symptoms due to benign prostatic hypertrophy (63246306049505) Benign non-nodular prostatic hyperplasia with lower urinary tract symptoms (N40.1) Active confirmed Problem 30909926 Anxiety (F41.9) Active confirmed Problem Sleep apnea (16147445) Sleep apnea (G47.30) Active confirmed Problem Insomnia (124341925) Insomnia (G47.00) Active confirmed Problem 32792627 Herpes simplex (B00.9) Active confirmed Problem 00905914 Peripheral polyneuropathy (G62.9) Active confirmed Problem 19111290 Constipation, unspecified constipation type (K59.00) Active confirmed Problem Cardiac arrhythmia (938876814) Cardiac arrhythmia, unspecified cardiac arrhythmia type (I49.9) Active confirmed Problem 83464190 Gingivitis (K05.10) Active confirmed Problem 23520202 Glucose intolera nce (E74.39) Active confirmed Problem 78081810 Smoking greater than 20 pack years (F17.210) Active confirmed Problem 15770510 Hypercholesterem ia (E78.00) Active confirmed Problem Syphilis (05337477) Syphilis, unspecified (A53.9) 0 confirmed Clint Problem Hyperlipidemia (86198054) Other hyperlipidemia (E78.4) 0 confirmed Clint Problem Hyperlipidemia (38449992) Hyperlipidemia, unspecified (E78.5) 0 confirmed ANMig Problem Tobacco user (427457782) Nicotine dependence, cigarettes, uncomplicated (F17.210) 0 confirmed Clint Problem Epidermoid cyst of skin (393119727) Follicular cyst of the skin and subcutaneous tissue, unspecified (L72.9) 0 confirmed Clint Problem Fever (063922486) Fever, unspeci fied (R50.9) 0 confirmed Clint Problem Exposure to sexually transmissible disorder (event) (475641996) Contact with and (suspected) exposure to infections with a predominantly sexual mode of transmission (Z20.2) 0 confirmed Clint Problem 29867653 Other and unspecified hyperlipidemia (E78.5) 0 confirmed Clint Problem 903839878 Routine general medical examination at a health care facility (Z00.00) 0 confirmed Clint Problem 322309547 Tobacco use diso rder (F17.200) 0 confirmed Clint Vital Signs Heart Rate 59 /min 09/18/2024 Temperature 98.6 degrees Fahrenheit 09/18/2024 Respiratory Rate 14 /min 09/18/2024 Oximetry 96 % 09/18/2024 Blood pressure diastolic 70 mm Hg 09/18/2024 Height 69 in 09/18/2024 Blood pressure systolic 110 mm Hg 09/18/2024 Weight 188.8 lbs 09/18/2024 BMI 27.88 kg/m2 09/18/2024 Encounters Encounter Location Date Provider Diagnosis [address] [address] 12/11/2023 Malick Prelutsky Encounter for immunization Z23 ; Typical atrial flutter I48.3 ; Hypercholesteremia E78.00 ; Smoking greater than 20 pack years F17.210 ; Anxiety F41.9 ; Guillain-Arco syndrome G61.0 and Sleep apnea G47.[address] [address] 03/12/2024 Malick Prelutsky Typical atrial flutt er I48.3 ; Smoking greater than 20 pack years F17.210 ; Hypercholesteremia E78.00 ; Anxiety F41.9 ; Guillain-Arco syndrome G61.0 and Sleep apnea G47.30 [facility]. [address] [place] [address] 06/12/2024 Malick Prelutsky Typical atrial flutt er I48.3 ; Smoking greater than 20 pack years F17.210 ; Hypercholesteremia E78.00 ; Anxiety F41.9 ; Guillain-Arco syndrome G61.0 ; Sleep apnea G47.30 ; Encounter for general adult medical examination with abnormal findings Z00.01 ; Benign non-nodular prostatic hyperplasia with lower urinary tract symptoms N40.1 ; Chest pain, unspecified type R07.9 ; Encounter for screening for malignant neoplasm of colon Z12.11 ; Herpes simplex B00.9 ; High risk sexual behavior, unspecified type Z72.51 ; Encounter for screening for infections with predominantly sexual mode of transmission Z11.3 ; Encounter for screening for HIV Z11.4 and Encounter for screening for other viral diseases Z11.59 [facility]. [address] [place] [address] 06/13/2024 Malick Prelutsk Encounter for immunization Z23 [facility]. [address] [place] [phone] 07/03/2024 Malick Prelutsky Typical atrial flutt er I48.3 ; Smoking greater than 20 pack years F17.210 ; Hypercholesteremia E78.00 ; Anxiety F41.9 ; Guillain-Arco syndrome G61.0 ; Sleep apnea G47.30 ; Benign non-nodular prostatic hyperplasia with lower urinary tract symptoms N40.1 ; Herpes simplex B00.9 ; High risk sexual behavior, unspecified type Z72.51 and Encounter for immunization Z23 [address] [address] 09/18/2024 Malick Prelutsky Encounter for immunization Z23 ; Typical atrial flutter I48.3 ; Smoking greater than 20 pack years F17.210 ; Hypercholesteremia E78.00 ; Anxiety F41.9 ; Guillain-Arco syndrome G61.0 ; Sleep apnea G47.30 and Herpes simplex B00.[address] [address] 06/13/[address] [address] 10/17/[address] [address] 04/19/[address] [address] 04/20/[address] [address] 04/20/[address] [address] 05/31/[address] [address] 05/31/2024 [facility] [address] [place] [address] 05/31/2024 [facility] [address] [place] [address] 06/01/2024 [facility] [address] [place] [address] 06/01/2024 [facility] [address] [place] [address] 06/13/2024 [facility] [address] [place] [address] 06/13/2024 [place] [place] [address] 06/13/2024 [facility]. [address] [place] [address] 10/17/2024 [facility]. [address] [place] [phone] 10/17/2024 [facility]. [address] [place] [address] 10/17/2024 [facility]. [address] [place] [address] 10/17/2024 [facility]. [address] [place] [phone] 10/17/2024 [facility] Assessments Encounter Date Diagnosis (ICD Code) Assessment Notes Treatment Notes Treatment Clinical Notes Section Notes 12/11/2023 Encounter for immunization (ICD-10 - Z23) 03/12/2024 Typical atrial flutter (ICD-10 - I48.3) follow-up with electrophysiology 06/12/2024 Typical atrial flutter (ICD-10 - I48.3) follow-up with electrophysiology, now in atrial fib with ventricular rate not controlled we will attempt rate control with increasing his metoprolol 06/13/2024 Encounter for immunization (ICD-10 - Z23) 07/03/2024 Typical atrial flutter (ICD-10 - I48.3) follow-up with electrophysiology, 09/18/2024 Encounter for immunization (ICD-10 - Z23) 07/03/2024 Smoking greater than 20 pack years (ICD-10 - F17.210) 09/18/2024 Typical atrial flutter (ICD-10 - I48.3) follow-up with electrophysiology, 06/12/2024 Smoking greater than 20 pack years (ICD-10 - F17.210) 03/12/2024 Smoking greater than 20 pack years (ICD-10 - F17.210) 12/11/2023 Typical atrial flutter (ICD-10 - I48.3) follow-up with electrophysiology 03/12/2024 Hypercholesteremia (ICD-10 - E78.00) 03/12/2024 Anxiety (ICD-10 - F41.9) 12/11/2023 Hypercholesteremia (ICD-10 - E78.00) 06/12/2024 Hypercholesteremia (ICD-10 - E78.00) 07/03/2024 Anxiety (ICD-10 - F41.9) 06/12/2024 Anxiety (ICD-10 - F41.9) 07/03/2024 Hypercholesteremia (ICD-10 - E78.00) 09/18/2024 Smoking greater than 20 pack years (ICD-10 - F17.210) 09/18/2024 Hypercholesteremia (ICD-10 - E78.00) 07/03/2024 Guillain-Arco syndrome (ICD-10 - G61.0) 03/12/2024 Guillain-Arco syndrome (ICD-10 - G61.0) 12/11/2023 Smoking greater than 20 pack years (ICD-10 - F17.210) 06/12/2024 Guillain-Arco syndrome (ICD-10 - G61.0) 03/12/2024 Sleep apnea (ICD-10 - G47.30) follow-up with sleep medicine to fine-tune his inspire device 12/11/2023 Anxiety (ICD-10 - F41.9) 07/03/2024 Sleep apnea (ICD-10 - G47.30) follow-up with sleep medicine to fine-tune his inspire device 06/12/2024 Sleep apnea (ICD-10 - G47.30) follow-up with sleep medicine to fine-tune his inspire device 09/18/2024 Anxiety (ICD-10 - F41.9) 07/03/2024 Benign non-nodular prostatic hyperplasia with lower urinary tract symptoms (ICD-10 - N40.1) 09/18/2024 Guillain-Arco syndrome (ICD-10 - G61.0) 06/12/2024 Encounter for genera l adult medical examination with abnormal findings (ICD-10 - Z00.01) 12/11/2023 Guillain-Arco syndrome (ICD-10 - G61.0) 12/11/2023 Sleep apnea (ICD-10 - G47.30) follow-up with sleep medicine to fine-tune his inspire device 06/12/2024 Benign non-nodular prostatic hyperplasia with lower urinary tract symptoms (ICD-10 - N40.1) 07/03/2024 Herpes simplex (ICD-10 - B00.9) 09/18/2024 Sleep apnea (ICD-10 - G47.30) follow-up with sleep medicine to fine-tune his inspire device 09/18/2024 Herpes simplex (ICD-10 - B00.9) 07/03/2024 High risk sexual behavior, unspecified type (ICD-10 - Z72.51) 06/12/2024 Chest pain, unspecified type (ICD-10 - R07.9) 06/12/2024 Encounter for screening for malignant neoplasm of colon (ICD-10 - Z12.11) 07/03/2024 Encounter for immunization (ICD-10 - Z23) 06/12/2024 Herpes simplex (ICD-10 - B00.9) 06/12/2024 High risk sexual behavior, unspecified type (ICD-10 - Z72.51) 06/12/2024 Encounter for screening for infections with predominantly sexual mode of transmission (ICD-10 - Z11.3) 06/12/2024 Encounter for screening for HIV (ICD-10 - Z11.4) 06/12/2024 Encounter for screening for other viral diseases (ICD-10 - Z11.59) 06/12/2024 Other Time was spent giving the patient safer sex counseling. Condoms were offered to patient. Plan Of Treatment Pending Test Test Name Order Date Electrocardiogram (EKG) 2022 HIV 1/2 Antibody Panel [id number] 08/16/2020 Lyme, IgM, Early Test/Reflex 02/16/2021 Lipid Panel 02/16/2021 Electrocardogram ECG (Samuel Sledge) 07/03 Electrocardogram ECG (Samuel Sledge) 05/25 Electrocardogram ECG (Samuel Mavis) 02/10 Electrocardogram ECG (Samuel Mavis) 06/[address]: Chest W/O Cont rast 09/13/[address]: Chest W/O Cont rast 12/11/[address]: Chest W/O Cont rast 03/14/[address]: Chest W/O Cont rast 2022 Next Appt Details Provider Name:Jak Poon jaswinder, 12/23/2024 10:40:00 AM, [address] [place], [address], Insurance Providers Payer Name Payer Address Payer Phone Subscriber Number Group Number Insured Name Patient Relationship to Insured Coverage Start Date Coverage End Date [facility] [address] [facility] [place] [phone] [id number] Atilio Travis Self - patient is the insured Medical (General) History Medical History History ICD Code High cholesterol
--- NOTE | 2024-10-17 11:49 | ED.ABDPAIN ---
HPI - Abdominal Pain General Chief Complaint: Abdominal Pain Stated Complaint: abdominal pain Source: patient Mode of arrival: ambulatory Limitations: no limitations History of Present Illness HPI narrative: 59-year-old male with a history of TIANA atrial fibrillation on Eliquis presents to the ED with a 2 day history of -- lower abdominal pain. The pain is colicky and lasts a few seconds. No radiation of the pain. No exacerbating or relieving factors. no nausea vomiting. Intermittent loose stools with mucus. No fever or chills. Unremarkable colonoscopy 3 years ago. MD elicited complaint: abdominal pain Pertinent past history: none Onset (ago): day(s) ( Three days) Pain Consistency: intermittent Location: other ( lower abdomen) Severity: moderate Quality: cramping Radiation: none Migration to: no migration Exacerbating factors: nothing Relieving factors: nothing Associated symptoms: denies other symptoms and diarrhea Related Data Home Medications ?Medication ?Instructions ?Recorded ?Confirmed ?Last Taken ?Type apixaban 5 mg tablet (Eliquis) 5 mg PO DAILY 01/24/23 01/24/23 Unknown History metoprolol succinate 25 mg 25 mg PO DAILY 01/24/23 01/24/23 Unknown History tablet,extended release 24 hr (Toprol XL) rosuvastatin 40 mg tablet (Crestor) 40 mg PO DAILY 01/24/23 01/24/23 Unknown History dofetilide 250 mcg capsule 250 mcg PO Q12H 10/17/24 Unknown History Allergies Allergy/AdvReac Type Severity Reaction Status Date / Time No Known Allergies Allergy Verified 10/17/24 11:56 Review of Systems Review of Systems: All systems reviewed & are unremarkable except as noted in HPI and below Constitutional: Constitutional: Reports as per HPI and Reports no additional constitutional complaints Eyes: Eyes: Reports as per HPI and Reports no additional eye complaints ENT: Reports system reviewed and no additional complaints, except as documented and Reports as per HPI Cardiovascular: Cardiovascular: Reports as per HPI and Reports no additional cardiovascular complaints Respiratory: Respiratory: Reports as per HPI and Reports no additional respiratory complaints Gastrointestinal: Gastrointestinal: Reports as per HPI, Reports no additional gastrointestinal complaints, Reports abdominal pain and Reports diarrhea Genitourinary: Genitourinary: Reports no additional male genitourinary complaints and Reports as per HPI Musculoskeletal: Musculoskeletal: Reports no additional musculoskeletal complaints and Reports as per HPI Integumentary/Breasts: Skin/Breast: Reports system reviewed and no additional complaints, except as docu and Reports as per HPI Neurologic: Reports system reviewed and no additional complaints, except as documented and Reports as per HPI Psychiatric: Psychiatric: Reports no additional psychiatric complaints and Reports as per HPI Endocrine: Endocrine: Reports no additional endocrine complaints and Reports as per HPI Hematologic/Lymphatic: Hematologic/Lymphatic: Reports no additional hematologic/lymphatic complaints and Reports as per HPI Allergic/Immunologic: Allergic/Immunologic: Reports no additional allergic/immunologic complaints and Reports as per HPI [facility] Past Medical History Medical History (Updated 10/17/24 @ 14:38 by Isaac Martines MD) Atrial fibrillation Obstructive sleep apnea Social History Social History (Updated 01/24/23 @ 21:26 by Fariba Harris RN) Smoking status: Current every day smoker Tobacco type: cigarettes Exam Const: General: no acute distress Limitations: no limitations HENMT: Head: normal to inspection Ears: external ears normal Face/Nose/Sinus: Normal external nose present Face and sinus: normal facial exam Mouth: Yes Normal oral and palatal mucosa present Throat: posterior oropharynx normal Eyes: Conjunctivae: conjunctivae normal Pupils: Equal, round and reactive pupils present EOM: EOMs intact bilaterally Direct Ophthalmoscopy: no photophobia Neck: Neck: normal visual inspection, no lymphadenopathy and no meningeal signs Chest: Chest palpation & inspection: normal inspection of the chest Resp: Effort & Inspection: normal respiratory effort Auscultation: clear to auscultation bilaterally Cardio: Rate: regular rate Rhythm: regular rhythm GI: GI Palp: Yes Soft to palpation Auscultation: normal bowel sounds Other: lower abdominal pain without any rigidity / rebound. : General: Yes no CVA tenderness Back/Spine/Pelvis: Back: no CVA tenderness Skin: General skin exam: normal color Rashes: no rashes Wounds: no wounds Neuro: General: patient oriented x3, moves all extremities, no meningeal signs, no focal motor deficits and CN's II-XI intact bilaterally Speech: normal speech Extrem: General: normal to inspection and no clubbing, cyanosis or edema Psych: Mental Status: mental status grossly normal Affect: normal affect Attitude: cooperative Course Course Emergency Course: lower abdominal pain with diarrhea-- tenderness on palpation without any peritoneal signs. Afebrile. Elevated white cell count of 12.3. Normal lactate. UA is unremarkable CT of the abdomen and pelvis revealed uncomplicated sigmoid diverticulitis. Will treat with Cipro and Flagyl. Will discuss with depilatory painter about using Cipro with Tikosyn. depilatory painter does not want to discontinue Tikosyn. Will treat the patient with Augmentin. CKD with a creatinine of 1.43. Vital Signs Vital signs: Vital Signs Temperature 36.7 C 10/17/24 11:46 Pulse Rate 69 10/17/24 11:46 Respiratory Rate 20 10/17/24 11:46 Blood Pressure 126/83 10/17/24 11:46 Pulse Oximetry 99 10/17/24 11:46 Oxygen Delivery Room Air 10/17/24 11:46 Temperature 36.7 C 10/17/24 11:46 Pulse Rate 69 10/17/24 11:46 Respiratory Rate 20 10/17/24 11:46 Blood Pressure 126/83 10/17/24 11:46 Pulse Oximetry 99 10/17/24 11:46 Oxygen Delivery Room Air 10/17/24 11:46 MDM - Abdominal Pain MDM Narrative Medical decision making narrative: Sigmoid diverticulitis Differential Diagnosis Differential diagnosis: Likely acute appendicitis and gastroenteritis Medical Records Attestation: I reviewed the patient's medical records. Lab Data Attestation: I reviewed the patient's lab results. 10/17/24 12:14 10/17/24 12:14 Labs: Lab Results 10/17/24 10/17/24 Range/Units 12:14 12:35 WBC 12.3 H (4.8-10.8) K/mm3 RBC 4.74 (4.70-6.10) M/mm3 Hgb 14.4 (14.0-18.0) g/dL Hct 43.1 (40.0-54.0) % MCV 90.9 (78.0-102.0) fL MCH 30.4 (27.0-31.0) pg MCHC 33.4 (32-36) g/dL RDW 13.2 (11.6-14.4) % Plt Count 142 L (150-420) K/mm3 MPV 10.8 (8.7-11.0) fl Immature Gran % (Auto) 0.5 H (0.0-0.0) % Neut % (Auto) 82.3 H (50.0-70.0) % Lymph % (Auto) 9.1 L (18.0-42.0) % [place] % (Auto) 7.6 (2.0-11.0) % Eos % (Auto) 0.3 L (1.0-6.0) % Baso % (Auto) 0.2 (0.0-1.0) % Lymph # (Auto) 1.12 (1.10-4.50) K/mm3 [place] # (Auto) 0.94 H (0.10-0.90) K/mm3 Eos # (Auto) 0.04 (0.02-0.50) K/mm3 Baso # (Auto) 0.03 (0.00-0.10) K/mm3 Abs Immat Gran (auto) 0.06 H (0.00-0.00) K/mm3 Absolute Neuts (auto) 10.14 H (1.70-7.20) K/mm3 Absolute Nucleated RBC 0.00 (0.00-0.00) K/mm3 Nucleated RBC % 0.0 (0-0.0) % PT 11.8 (9.50-12.1) Seconds INR 1.1 Sodium 137 (137-145) mmol/L Potassium 4.5 (3.4-5.0) mmol/L Chloride 102 (98-107) mmol/L Carbon Dioxide 28 (22-30) mmol/L Anion Gap 7 (4-12) mmol/L BUN 13 (9-20) mg/dL Creatinine 1.43 H (0.7-1.3) mg/dL Estim Creat Clear Calc 45 ml/min Estimated GFR 51 L (59 - ) Glucose 108 (65-110) mg/dL Calculated Osmolality 285 (285-295) mOsm/kg Lactic Acid 0.8 (0.4-2.0) mmol/L Calcium 8.9 (8.4-10.2) mg/dL Total Bilirubin 1.6 H (0.2-1.3) mg/dL AST 22 (17-59) U/L ALT 21 (6-50) U/L Alkaline Phosphatase 66 (38-126) U/L Total Protein 6.9 (6.3-8.2) g/dL Albumin 3.9 (3.5-5.1) g/dL Lipase 83 (23-300) U/L Urine Color Light yellow (Yellow) Urine Appearance Clear (Clear) Urine pH 6.0 (5.0-8.0) Ur Specific [place] 1.020 (1.010-1.020) Urine Protein Negative (Negative) Urine Glucose (UA) Negative (Negative) Urine Ketones Negative (Negative) Ur Blood (Man) Trace-intact H (Negative) Urine Nitrate Negative (Negative) Urine Bilirubin Negative (Negative) Urine Urobilinogen 0.2 (0.2-1.0) mg/dL Leukocyte Esterase Rfl Negative (Negative) [facility] Imaging Data Radiologist's impression: ITS Impressions Abdomen/Pelvis CT 10/17/24 14:17 IMPRESSION: Findings are compatible with acute uncomplicated sigmoid diverticulitis and/or focal colitis. No rim-enhancing abscess seen. Discharge Plan Discharge Clinical Impression: Diverticulitis of sigmoid colon Patient Disposition: Home Condition: Stable Instructions: Antibiotic Form, Diverticulitis (ED) Patient Language: Romanian Prescriptions: New amoxicillin-pot clavulanate 875-125 mg tablet 1 tablet PO Q12H Qty: 14 0RF No Action metoprolol succinate [Toprol XL] 25 mg tablet extended release 24 hr 25 mg PO DAILY rosuvastatin [Crestor] 40 mg tablet 40 mg PO DAILY Eliquis 5 mg tablet 5 mg PO DAILY dofetilide 250 mcg capsule 250 mcg PO Q12H Follow-up/Referrals: UNKNOWN,DOCTOR [Non-Staff] - Time of Disposition: 15:05
[2024-10-17 12:19] LABS: Hematocrit 43.1 % (40.0-54.0); Hemoglobin 14.4 g/dL (14.0-18.0); Immature Granulocyte Percent A 0.5 % (0.0-0.0); Lymphocytes Absolute Auto 1.12 K/mm3 (1.10-4.50); Mean Corpuscular HGB Conc 33.4 g/dL (32-36); Mean Corpuscular Hemoglobin 30.4 pg (27.0-31.0); Mean Corpuscular Volume 90.9 fL (78.0-102.0); Nucleated Red Blood Cells Absolute Auto 0.00 K/mm3 (0.00-0.00); Nucleated Red Blood Cells Perc 0.0 % (0-0.0); Platelet Count Result 142 K/mm3 (150-420); Red Blood Count 4.74 M/mm3 (4.70-6.10); White Blood Count 12.3 K/mm3 (4.8-10.8)
--- OUTSIDE RECORDS SUMMARY | 2024-10-17 12:19 | XMS_ITS | Clinical Summary ---
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 8th [place] [address] [place] [address] Sami Narayanan MD PhD 10/13/2024 2:45 PM CDT Office Visit [facility] Cardiology [address] [facility] 8th [place] [address] [place] [address] Katelin Bates NP Typical atrial flutter (HCC) (Primary Dx) 10/13/2024 Results Follow-Up [facility] Cardiology [address] [facility] 8th [place] [address] [place] [address] Katelin Bates NP ECG 12 lead 09/15/2024 7:04 PM CDT - 09/18/2024 11:01 AM CDT Hospital Encounter [facility] 1 [place] [address] Sami Narayanan MD PhD Vikas Gaytan MD Aldiabat, Mohammad Awad Yousef, MD Discharge Disposition: Discharge to home or self care 09/15/[address] [facility] Bed Planning 1 [place] [address] Shannon Cuadra, JERALD 09/08/[address] [facility] ADMIT 1 [place] [address] Maria Del Rosario Martinez, JERALD 09/08/2024 Telephone [facility] Cardiology [address] [place] [address] 8th [place] [address] [place] [address] Corina Boo 08/11/2024 Telephone [facility] Cardiology [address] [place] [address] 8th [place] [address] [place] [address] Sami Narayanan MD PhD 08/08/2024 Telephone [facility] Cardiology [facility] [facility] 8th [place] [address] [place] [address] Sami Narayanan MD PhD 07/29/2024 1:00 PM CDT Office Visit [facility] Neuro Sleep [address] [facility] 6th Floor [address] [place] [phone] Ricardo Rutherford PA TIANA (obstructive sleep apnea) (Primary Dx); Chronic insomnia; S/P placement of hypoglossal nerve stimulator 07/24/2024 2:30 PM CDT Office Visit [facility] Neuro Muscle [address] [facility] 6th [place] [address] [place] [phone] Karen Mora MD GBS (Guillain [place] syndrome) 07/24/2024 Telephone [facility] Cardiology [address] [facility] 8th [place] [address] [place] [phone] Sami Narayaann MD PhD 07/23/2024 12:15 PM CDT Office Visit [facility] Cardiology [address] [facility] 8th [place] [address] [place] [address] Sami Narayanan MD PhD Paroxysmal atrial fibrillation (HCC) (Primary Dx); Typical atrial flutter (HCC) 07/23/2024 Results Follow-Up [facility] Cardiology [facility] Medical Office Building 3 [address] [place] [phone] Sami Narayanan MD PhD ECG 12 lead [...] on file Legal Sex Male 10:17 PM ICE CREAM DIPPER Gender Identity Not on file Sexual Orientation [...] 07/03/2024, 06/13/2024 Medical Devices Implanted Type Area Gwot Ia/Ilo Intelligence Support Device Identifier Shelf Expiration Date Model / Serial / Lot [employer] [id number] System 6-12fr Mvp Venous Closure Vascade - [id number] - [id number] Implanted:Qty: 1 on 01/28/2021 by Jeramie Caban MD at [facility] Collagen Right: Groin [employer] 10/07/2022 800-612C- 10U / [id number] / [employer] [id number] System 6-12fr Mvp Venous Closure Vascade - [id number] Implanted:Qty: 1 on 01/28/2021 by Jeramie Caban MD at [facility] Collagen Right: Groin [employer] 11/10/2022 800-612C- 10U / / [id number] 30C [employer] [id number] System 6-12fr Mvp Venous Closure Vascade - [id number] - [id number] Implanted:Qty: 1 on 01/28/2021 by Jeramie Caban MD at [facility] Collagen Left: Groin [employer] 11/10/2022 800-612C- 10U / [id number] / [id number] 30C [employer] [id number] Device Closure Vascade Od5 Fr Femoral Artery - [id number] - [id number] Implanted:Qty: 1 on 01/28/2021 by Jeramie Caban MD at [facility] Collagen Left: Groin [employer] 10/11/2022 [id number] -05U / [id number] / [id number] 720A [employer] Inspire 3 Electrode Cuff Tunnel Mendez Lead Neurostimulator Sterile 4063 - [id number] - [id number] Implanted:Qty: 1 on 09/28/2022 by Omar Fereman MD at [facility] Right: Neck [employer] 06/11/2025 4063 / [id number] / [employer] Lead Neurostimulator Sleep Apnea Thoracic Permanent Respiratory Sensing Inspire 43cm 4340 - [id number] - [id number] Implanted:Qty: 1 on 09/28/2022 by Omar Freeman MD at [facility] Right: Chest [employer] 07/24/2025 4340 / [id number] / [employer] Inspire Generator 3028 - [id number] - [id number] Implanted:Qty: 1 on 09/28/2022 by Omar Freeman MD at [facility] Right: Chest [employer] 06/08/2025 3028 / [id number] / Procedures Procedure Name Priority Date/Time [...] HEPATITIS PANEL, ACUTE STAT 02/14/2021 6:52 PM ICE CREAM DIPPER ALBUMIN CREATININE RATIO, URINE STAT 02/14/2021 6:52 PM ICE CREAM DIPPER HEMOGLOBIN A1C STAT 02/14/2021 1:28 PM ICE CREAM DIPPER SERUM LIPID PANEL Routine 08/09/2015 3:5 3 PM CDT from Last 3 Months or Most Recently Relevant to Health Maintenance Results * ECG 12 lead (10/13/2024 2:53 PM CDT) us Katelin Bates NP ECG ORDERABLES Edited R esult - Final * ECG 12 lead (09/18/2024 10:11 AM CDT) Ventricular Rate EKG/Min 55 BPM [facility] Atrial Rate 55 BPM [facility] TN-Interval (MSEC) 130 ms [facility] QRS-Interval (MSEC) 78 ms [facility] QT-Interval (MSEC) 450 ms [facility] QTc 430 ms [facility] R Cornell 189 degrees [facility] T Cornell 155 degrees [facility] Diagnosis Atrial-sensed ventricular-pa rafa rhythm Abnormal ECG When compared with ECG of 17-SEP-2024 10:34, Electronic ventricular pacemaker has replaced Sinus rhythm Confirmed by Natacha NAVAS, Formerly [facility], 1928–1983 ([id number]) on 09/19/2024 11:16:22 AM [facility] 09/18/2024 10:1 1 AM CDT 09/19/2024 11:16 AM CDT us Shelly Ramon MD ECG ORDERABLES Final Result [facility] * (ABNORMAL) eGFR (09/18/2024 3:20 [...] MD LAB BLOOD ORDERA BLES Final Result [facility] Department [place] [employer] [place] [address] * Magnesium (09/18/2024 3:20 AM CDT) Magnesium 2.2 1.4 - 2.5 mg/dL Blood 09/18/2024 3:20 AM CDT 09/18/2024 5:01 AM CDT Vikas Gaytan MD LAB BLOOD ORDERA BLES Final Result [facility] [place] [place] [address] * (ABNORMAL) Basic metabolic panel (09/18/2024 3:20 AM CDT) Sodium 139 135 - 145 mmol/L Potassium, pl 4.2 3.3 - 4.9 mmol/L [facility] Chloride 105 97 - 110 mmol/L [facility] CO2 25 22 - 32 mmol/L [facility] Anion gap 9 2 - 15 mmol/L [facility] BUN 20 6 - 25 mg/dL [facility] Creatinine 1.52(H) 0.80 - 1.30 mg/dL [facility] Glucose 128 70 - 199 mg/dL [facility] Comment: Interpretive Data Fasting glucose >/= 126 [...] 2022. Calcium 8.9 8.5 - 10.3 mg/dL [facility] Blood 09/18/2024 3:20 AM CDT 09/18/2024 5:01 AM CDT Vikas Gaytan MD LAB BLOOD ORDERA BLES Final Result [facility] Department [place] [address] * ECG 12 lead (09/17/2024 10:34 AM CDT) Ventricular Rate EKG/Min 59 BPM [facility] Atrial Rate 59 BPM [facility] TN-Interval (MSEC) 140 ms [facility] QRS-Interval (MSEC) 72 ms [facility] QT-Interval (MSEC) 414 ms [facility] QTc 409 ms [facility] P Cornell 15 degrees [facility] R Cornell -15 degrees [facility] T Cornell 14 degrees [facility] Diagnosis Sinus bradycardia with Premature atrial complexes Otherwise normal ECG No previous ECGs available Confirmed by HIEU ALCANTAR M.D ([id number]) on 09/18/2024 10:12:19 AM [facility] 09/17/2024 10:3 4 AM CDT 09/18/2024 10:12 AM CDT Shelly Ramon MD ECG ORDERABLES Final Result [facility] * (ABNORMAL) eGFR (09/17/2024 3:19 [...] ORDERA BLES Final Result Performing Organization Address City/[facility]/ZIP Co de Phone Number KEZIA FITZPATRICK [facility] [place] [address] * Magnesium (09/17/2024 3:19 AM CDT) Magnesium 2.1 1.4 - 2.5 mg/dL Blood 09/17/2024 3:19 AM CDT 09/17/2024 4:29 AM CDT Vikas Gaytan MD LAB BLOOD ORDERA BLES Final Result [facility] Department [place] [address] * (ABNORMAL) Basic metabolic panel (09/17/2024 3:19 AM CDT) [facility] Sodium 139 135 - 145 mmol/L Potassium, pl 4.6 3.3 - 4.9 mmol/L [facility] Chloride 105 97 - 110 mmol/L [facility] CO2 25 22 - 32 mmol/L [facility] Anion gap 9 2 - 15 mmol/L [facility] BUN 18 6 - 25 mg/dL [facility] Creatinine 1.40(H) 0.80 - 1.30 mg/dL [facility] Glucose 106 70 - 199 mg/dL [facility] Comment: Interpretive Data Fasting glucose >/= 126 [...] 2022. Calcium 9.1 8.5 - 10.3 mg/dL [facility] Blood 09/17/2024 3:19 AM CDT 09/17/2024 4:29 AM CDT Vikas Gaytan MD LAB BLOOD ORDERA BLES Final Result Performing Organization Address City/[facility]/ZIP Co de Phone Number [facility] Department [place] [address] * (ABNORMAL) eGFR (09/16/2024 3:40 AM CDT) Pathologist [facility] eGFR 53(L) >=60 mL/min/1. 73 m2 Comment: [...] MD LAB BLOOD ORDER GENESIS Final Result [facility] Department [place] [address] * Differential, auto (09/16/2024 3:40 AM CDT) [facility] Neutrophil abs 3.77 1.50 - 6.50 K/cumm Imm gran abs 0.01 0.00 - 0.10 K/cumm [facility] Lymphocyte abs 1.69 0.80 - 3.30 K/cumm [facility] Monocyte abs 0.50 0.20 - 0.80 K/cumm [facility] Eosinophil abs 0.17 0.00 - 0.50 K/cumm [facility] Basophil abs 0.03 0.00 - 0.10 K/cumm [facility] Neutrophil pct 61.0 % [facility] Comment: Interpretive Data Percent cell count reference ranges are not reported, since discordance with absolute values may lead to misinterpretation of CBC data. Current Interpretive Data was last revised on 2017. Imm gran pct 0.2 % [facility] Comment: Interpretive Data Percent cell count reference ranges are not reported, since discordance with absolute values may lead to misinterpretation of CBC data. Current Interpretive Data was last revised on 2017. Lymphocyte pct 27.4 % [facility] Comment: Interpretive Data Percent cell count reference ranges are not reported, since discordance with absolute values may lead to misinterpretation of CBC data. Current Interpretive Data was last revised on 2017. Monocyte pct 8.1 % [facility] Comment: Interpretive Data Percent cell count reference ranges are not reported, since discordance with absolute values may lead to misinterpretation of CBC data. Current Interpretive Data was last revised on 2017. Eosinophil pct 2.8 % [facility] Comment: Interpretive Data Percent cell count reference ranges are not reported, since discordance with absolute values may lead to misinterpretation of CBC data. Current Interpretive Data was last revised on 2017. Basophil pct 0.5 % [facility] Comment: Interpretive Data Percent cell count reference ranges are not reported, since discordance with absolute values may lead to misinterpretation of CBC data. Current Interpretive Data was last revised on 2017. Blood 09/16/2024 3:40 AM CDT 09/16/2024 5:09 AM CDT Shelly Ramon MD LAB BLOOD ORDER GENESIS Final Result [facility] Department [place] [address] * (ABNORMAL) CBC with auto differential (09/16/2024 3:40 AM CDT) WBC 6.17 3.80 - 9.90 K/cumm Hgb 14.5 13.0 - 17.5 g/dL [facility] Hct 42.8 38.9 - 50.3 % [facility] Plt 146(L) 150 - 400 K/cumm [facility] MPV 11.2 9.1 - 12.3 fL [facility] RBC 4.69 4.30 - 5.80 M/cumm [facility] MCV 91.3 81.3 - 96.4 fL [facility] MCH 30.9 27.1 - 33.3 pg [facility] MCHC 33.9 32.3 - 35.7 g/dL [facility] RDW CV 14.0 11.1 - 14.9 % [facility] RDW SD 46.4 35.7 - 48.1 fL [facility] NRBC abs 0.00 0.00 - 0.01 K/cumm [facility] Blood 09/16/2024 3:40 AM CDT 09/16/2024 5:09 AM CDT Shelly Ramon MD LAB BLOOD ORDER GENESIS Final Result [facility] Department [place] [place] [address] * Phosphorus (09/16/2024 3:40 AM CDT) Phosphorus, pl 3.9 2.3 - 4.5 mg/dL Blood 09/16/2024 3:40 AM CDT 09/16/2024 5:08 AM CDT Shelly Ramon MD LAB BLOOD ORDER GENESIS Final Result [facility] [place] [place] [address] * Magnesium (09/16/2024 3:40 AM CDT) Magnesium 2.2 1.4 - 2.5 mg/dL Blood 09/16/2024 3:40 AM CDT 09/16/2024 5:08 AM CDT Shelly Ramon MD LAB BLOOD ORDER GENESIS Final Result [facility] Department [place] [address] * (ABNORMAL) Comprehensive metabolic panel (09/16/2024 3:40 AM CDT) Sodium 140 135 - 145 mmol/L Potassium, pl 4.6 3.3 - 4.9 mmol/L [facility] Chloride 105 97 - 110 mmol/L [facility] CO2 25 22 - 32 mmol/L [facility] Anion gap 10 2 - 15 mmol/L [facility] BUN 16 6 - 25 mg/dL [facility] Creatinine 1.50(H) 0.80 - 1.30 mg/dL [facility] Glucose 89 70 - 199 mg/dL [facility] Comment: Interpretive Data Fasting glucose >/= 126 [...] Calcium 9.2 8.5 - 10.3 mg/dL [facility] Bilirubin, total 0.8 0.1 - 1.2 mg/dL [facility] Protein, pl 6.8 6.5 - 8.5 g/dL [facility] Albumin 4.0 3.5 - 5.0 g/dL [facility] Alk phos 78 40 - 130 Units/L [facility] ALT 33 7 - 55 Units/L [facility] AST 31 10 - 50 Units/L [facility] Blood 09/16/2024 3:40 AM CDT 09/16/2024 5:08 AM CDT Shelly Ramon MD LAB BLOOD ORDER GENESIS Final Result Performing Organization Address City/[facility] Co de Phone Number KEZIA [facility] Department [place] [address] * (ABNORMAL) eGFR (09/15/2024 10:31 PM CDT) [...] ORDER GENESIS Final Result Performing Organization Address City/[facility]/ZIP Co de Phone Number [facility] Department [place] [address] * Differential, auto (09/15/2024 10:31 PM CDT) Pathologist [facility] Neutrophil abs 4.05 1.50 - 6.50 K/cumm Imm gran abs 0.03 0.00 - 0.10 K/cumm [facility] Lymphocyte abs 1.99 0.80 - 3.30 K/cumm [facility] Monocyte abs 0.53 0.20 - 0.80 K/cumm [facility] Eosinophil abs 0.17 0.00 - 0.50 K/cumm [facility] Basophil abs 0.02 0.00 - 0.10 K/cumm [facility] Neutrophil pct 59.7 % [facility] Comment: Interpretive Data Percent cell count reference ranges are not reported, since discordance with absolute values may lead to misinterpretation of CBC data. Current Interpretive Data was last revised on 2017. Imm gran pct 0.4 % [facility] Comment: Interpretive Data Percent cell count reference ranges are not reported, since discordance with absolute values may lead to misinterpretation of CBC data. Current Interpretive Data was last revised on 2017. Lymphocyte pct 29.3 % [facility] Comment: Interpretive Data Percent cell count reference ranges are not reported, since discordance with absolute values may lead to misinterpretation of CBC data. Current Interpretive Data was last revised on 2017. Monocyte pct 7.8 % [facility] Comment: Interpretive Data Percent cell count reference ranges are not reported, since discordance with absolute values may lead to misinterpretation of CBC data. Current Interpretive Data was last revised on 2017. Eosinophil pct 2.5 % [facility] Comment: Interpretive Data Percent cell count reference ranges are not reported, since discordance with absolute values may lead to misinterpretation of CBC data. Current Interpretive Data was last revised on 2017. Basophil pct 0.3 % [facility] Comment: Interpretive Data Percent cell count reference ranges are not reported, since discordance with absolute values may lead to misinterpretation of CBC data. Current Interpretive Data was last revised on 2017. Blood 09/15/2024 10:3 1 PM CDT 09/15/2024 11:27 PM CDT us Shelly Ramon MD LAB BLOOD ORDER GENESIS Final Result [facility] Department [place] [address] * (ABNORMAL) CBC with auto differential (09/15/2024 10:31 PM CDT) [facility] WBC 6.79 3.80 - 9.90 K/cumm Hgb 14.1 13.0 - 17.5 g/dL [facility] Hct 40.7 38.9 - 50.3 % [facility] Plt 145(L) 150 - 400 K/cumm [facility] MPV 11.3 9.1 - 12.3 fL [facility] RBC 4.59 4.30 - 5.80 M/cumm [facility] MCV 88.7 81.3 - 96.4 fL [facility] MCH 30.7 27.1 - 33.3 pg [facility] MCHC 34.6 32.3 - 35.7 g/dL [facility] RDW CV 13.9 11.1 - 14.9 % [facility] RDW SD 45.0 35.7 - 48.1 fL [facility] NRBC abs 0.00 0.00 - 0.01 K/cumm [facility] Blood 09/15/2024 10:3 1 PM CDT 09/15/2024 11:27 PM CDT Shelly Ramon MD LAB BLOOD ORDER GENESIS Final Result [facility] Department [place] [address] * aPTT (09/15/2024 10:31 PM CDT) [facility] aPTT 34 28 - 38 sec Comment: Interpretive Data Heparin therapeutic range: 66.0 - 100.0 seconds. Range based on correlation with therapeutic heparin activity range of 0.3 - 0.7 Units/mL. Current interpretive data was last revised on 2022. Blood 09/15/2024 10:3 1 PM CDT 09/15/2024 11:27 PM CDT Shelly Ramon MD LAB BLOOD ORDER GENESIS Final Result Performing Organization Address City/State/[facility] Co de Phone Number [facility] [place] [address] * (ABNORMAL) Protime-INR (09/15/2024 10:31 PM CDT) Pathologist [facility] PT 15.3(H) 9.7 - 13.0 sec INR 1.41(H) 0.90 - 1.20 [facility] Comment: Interpretive data Oral anticoagulant therapeutic ranges: Venous thromboembolism prophylaxis or treatment: 2.0-3.0 CARDIOLOGY Standard range: 2.0-3.0 High-intensity range: 2.5-3.5 Refer to indication-specific guidelines for appropriate target ranges for prosthetic heart valve replacement. Current interpretive data was last revised on 2019. Blood 09/15/2024 10:3 1 PM CDT 09/15/2024 11:27 PM CDT Shelly Ramon MD LAB BLOOD ORDER GENESIS Final Result Performing Organization Address City/[facility] Co de Phone Number [facility] Department [place] [address] * TSH (09/15/2024 10:31 PM CDT) Pathologist [facility] Thyroid Stimulating Hormone 2.42 0.30 - 4.20 mcIUnit/mL Blood 09/15/2024 10:3 1 PM CDT 09/15/2024 11:26 PM CDT Shelly Ramon MD LAB BLOOD ORDER GENESIS Final Result Performing Organization Address City/[facility] Co de Phone Number [facility] [place] [address] * Phosphorus (09/15/2024 10:31 PM CDT) Pathologist [facility] Phosphorus, pl 2.7 2.3 - 4.5 mg/dL Blood 09/15/2024 10:3 1 PM CDT 09/15/2024 11:26 PM CDT Shelly Ramon MD LAB BLOOD ORDER GENESIS Final Result Performing Organization Address City/[facility]/ZIP Co de Phone Number [facility] Department [place] [address] * Magnesium (09/15/2024 10:31 PM CDT) Pathologist [facility] Magnesium 2.4 1.4 - 2.5 mg/dL Blood 09/15/2024 10:3 1 PM CDT 09/15/2024 11:26 PM CDT Shelly Ramon MD LAB BLOOD ORDER GENESIS Final Result Performing Organization Address City/[facility] de Phone Number [facility] Department [place] [address] * (ABNORMAL) Comprehensive metabolic panel (09/15/2024 10:31 PM CDT) [facility] Sodium 142 135 - 145 mmol/L Potassium, pl 4.2 3.3 - 4.9 mmol/L [facility] Chloride 105 97 - 110 mmol/L [facility] CO2 29 22 - 32 mmol/L [facility] Anion gap 8 2 - 15 mmol/L [facility] BUN 16 6 - 25 mg/dL [facility] Creatinine 1.45(H) 0.80 - 1.30 mg/dL [facility] Glucose 127 70 - 199 mg/dL [facility] Comment: Interpretive Data Fasting glucose >/= 126 [...] Calcium 9.3 8.5 - 10.3 mg/dL [facility] Bilirubin, total 1.0 0.1 - 1.2 mg/dL [facility] Protein, pl 6.6 6.5 - 8.5 g/dL [facility] Albumin 4.0 3.5 - 5.0 g/dL [facility] Alk phos 72 40 - 130 Units/L [facility] ALT 35 7 - 55 Units/L [facility] AST 28 10 - 50 Units/L [facility] Blood 09/15/2024 10:3 1 PM CDT 09/15/2024 11:26 PM CDT Shelly Ramon MD LAB BLOOD ORDER GENESIS Final Result [facility] Department [place] [address] * ECG 12 lead (07/23/2024 12:01 PM [...] Albumin Creatinine Ratio, Urine (02/14/2021 6:52 PM [employer]) Albumin Ur 17.7 mg/L [facility] Comment: Interpretive Data No reference range established. Current interpretive data was last revised 2018. Creatinine Ur 209.0 mg/dL [facility] Comment: Interpretive Data No reference range established. Current interpretive data was last revised 2018. Albumin Creatinine Ratio, Ur 8 1 - 29 mg/g [facility] Urine 02/14/2021 6:52 PM [employer] [facility] 02/14/2021 6:59 PM [facility] [employer] LAB URINE ORDERABLES F inal Result [facility] Department [place] [address] * Hepatitis panel, acute (02/14/2021 6:52 PM [employer]) Pathologist [facility] Hep A IgM Nonreactive Nonreactive [facility] Comment: Interpretive Data: If Hep A IgM Ab is reported as Equivocal, a new sample should be drawn in two weeks for testing. Current interpretive data was last revised on 19. Hep B core IgM Nonreactive Nonreactive [facility] Comment: Interpretive Data If HepB Core IgM Ab is reported as Equivocal, a new sample should be drawn in two weeks for testing. Current interpretive data was last revised on 19. Hep C Ab Nonreactive Nonreactive [facility] Comment:Antibodies to HCV no t detected. Does NOT exclude the possibility of recent exposure to HCV. HepBsAg Nonreactive Nonreactive [facility] Blood 02/14/2021 6:52 PM [employer] 02/14/2021 6:58 PM [employer] [facility] LAB MICROBIOLOGY - GEN ERAL ORDERABLES Edited Result - Final Performing Organization Address [facility]/ZIP Co de Phone Number [facility] [place] [place] [address] * (ABNORMAL) Hemoglobin A1c (02/14/2021 1:28 PM [employer]) Hgb A1C 6.3(H) 4.0 - 5.6 % [facility] Estimated Average Glucose 134 mg/dL [facility] Comment: The ADA recommends reporting an estimated Average Glucose (eAG) with all Hemoglobin A1c results using the equation derived from a study of 507 normal and diabetic adults. Minority populations were underrepresented and children were not included. (Diabetes Care 2020; 43(S1): S66-S76). The eAG is not equivalent to a fasting glucose. Blood 02/14/2021 1:28 PM [employer] 02/14/2021 2:08 PM [employer]PER Result [facility] us Notinfile Unknown LAB BLOOD ORDERABLES Final Res ult Performing Organization Address [facility] Co de Phone Number KEZIA [facility] Department [place] [address] * (ABNORMAL) Serum lipid panel (08/09/2015 3:53 [...] collect in outpatient setting. 09/17/2024 09/30/2024 Insurance [facility] CMR Advance Directives For more information, please contact: [phone] * Full Code (Latest Code Status on File) Date Activated Date Inactivated Comments 09/15/2024 7:17 PM 09/18/2024 3:02 PM * Full Code Date Activated Date Inactivated Comments 02/24/2021 5:01 AM 02/27/2021 2:01 AM Care Teams Insole Tacker Relationship Specialty Start Date End Date Malick Li MD [address] [place] [address] PCP - General Internal Medicine 04/21/20
--- OUTSIDE RECORDS SUMMARY | 2024-10-17 12:19 | XMS_ITS | Referral Summary ---
Author Organization [facility] Address [address] [place] [id number] Care Team Providers Care C Web Developer Name Role Phone Malick Li MD Primary Care Provider [phone]- [phone] Encounters Date Type Department Care Team Description 10/15/[address] [place] [id number] Sami Narayanan MD PhD 10/13/2024 Results Follow-Up [address] [place] [address] Katelin Bates NP ECG 12 lead 10/13/2024 2:45 PM CDT Office Visit [address] [place] [address] Katelin Bates NP Typical atrial flutter (HCC) (Primary Dx) 09/15/2024 7:04 PM CDT - 09/18/2024 11:01 AM CDT Hospital Encounter [facility] 1 [place] [address] Sami Narayanan MD PhD [facility] Aldiabat, Mohammad Awad Yousef, MD Discharge Disposition: Discharge to home or self care 09/15/2024 Telephone [facility] Bed Planning 1 [place] [address] Shannon Cuadra RN 09/08/2024 Telephone [facility] ADMIT 1 [place] [address] Maria Del Rosario Martinez RN 09/08/2024 Telephone [facility] Cardiology [facility] [facility] 8th [place] [address] [place] [address] Lexie Booianna 08/11/[address] 8th [place] [address] [place] [address] Sami Narayanan MD PhD 08/08/[address] 8th [place] [address] [place] [address] Sami Narayanan MD PhD 07/29/2024 1:00 PM CDT Office Visit [facility] Neuro Sleep [address] [facility] 6th Floor [address] [place] [address] Ricardo Rutherford PA TIANA (obstructive sleep apnea) (Primary Dx); Chronic insomnia; S/P placement of hypoglossal nerve stimulator 07/24/[address] [place] [address] [place] [address] Sami Narayanan MD PhD 07/24/2024 2:30 PM CDT Office Visit [facility] Neuro Muscle [address] [place] [address] [place] [address] [place] [address] Karen Mora MD 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 Results Follow-Up [facility] Cardiology [facility] Medical Office Building 3 [address] [place] [address] Sami Narayanan MD PhD ECG 12 lead 07/23/2024 12:15 PM CDT Office Visit [address] [place] [address] [place] [address] Sami Narayanan MD PhD Paroxysmal atrial fibrillation [...] History hyperlipidemia: Continue home Crestor Hypercholesteremia 06/21/2023 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 Glucose intolerance 06/21/2023 Fever 06/21/2023 [...] (12/31/2020): Added automatically from request for surgery [id number] Sensorineural hearing loss ( SNHL) of right [...] on file 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 Gender Identity Not on file Sexual Orientation [...] on file Medical Devices Implanted Type Area Lead Driver Device Identifier Shelf Expiration Date Model / Serial / Lot [employer] [id number] System 6-12fr Mvp Venous Closure Vascade - [id number] - [id number] Implanted:Qty: 1 on 01/28/2021 by Jeramie Caban MD at [facility] Collagen Right: Groin [employer] 10/07/2022 800-612C- 10U / [id number] / [employer] [id number] System 6-12fr Mvp Venous Closure Vascade - [id number] Implanted:Qty: 1 on 01/28/2021 by Jeramie Caban MD at [facility] Collagen Right: Groin [employer] 11/10/2022 800-612C- 10U / / [id number] 30C [employer] [id number] System 6-12fr Mvp Venous Closure Vascade - [id number] - [id number] Implanted:Qty: 1 on 01/28/2021 by Jeramie Caban MD at [facility] Collagen Left: Groin [employer] 11/10/2022 800-612C- 10U / [id number] / [id number] 30C [employer] [id number] Device Closure Vascade Od5 Fr Femoral Artery - [id number] - [id number] Implanted:Qty: 1 on 01/28/2021 by Jeramie Caban MD at [facility] Collagen Left: Groin [employer] 10/11/2022 [id number] -05U / [id number] / [id number] [employer] Inspire 3 Electrode Cuff Tunnel Mendez Lead Neurostimulator Sterile 4063 - [id number] - [id number] Implanted:Qty: 1 on 09/28/2022 by Omar Freeman MD at [facility] Right: Neck [employer] 06/11/2025 4063 / [id number] / [employer] Lead Neurostimulator Sleep Apnea Thoracic Permanent Respiratory Sensing Inspire 43cm 4340 - [id number] - [id number] Implanted:Qty: 1 on 09/28/2022 by Omar Freeman MD at [facility] Right: Chest [employer] 07/24/2025 4340 / [id number] / [employer] Inspire Generator 3028 - [id number] - [id number] Implanted:Qty: 1 on 09/28/2022 by Omar Freeman MD at [facility] Right: Chest [employer] 06/08/2025 3028 / [id number] / Procedures Procedure Name Priority Date/Time [...] HEPATITIS PANEL, ACUTE STAT 02/14/2021 6:52 PM PLASTICS WORKER ALBUMIN CREATININE RATIO, URINE STAT 02/14/2021 6:52 PM PLASTICS WORKER HEMOGLOBIN A1C STAT 02/14/2021 1:28 PM PLASTICS WORKER SERUM LIPID PANEL Routine 08/09/2015 3:5 3 PM CDT from Last 3 Months or Most Recently Relevant to Health Maintenance Results * ECG 12 lead (10/13/2024 2:53 PM CDT) us Katelin Bates NP ECG ORDERABLES Edited R esult - Final * ECG 12 lead (09/18/2024 10:11 AM CDT) Pathologist [facility] Ventricular Rate EKG/Min 55 BPM [facility] Atrial Rate 55 BPM [facility] CO-Interval (MSEC) 130 ms [facility] QRS-Interval (MSEC) 78 ms [facility] QT-Interval (MSEC) 450 ms [facility] QTc 430 ms [facility] R [place] 189 degrees [facility] T [place] 155 degrees [facility] Diagnosis Atrial-sensed ventricular-pa rafa rhythm Abnormal ECG When compared with ECG of 17-SEP-2024 10:34, Electronic ventricular pacemaker has replaced Sinus rhythm Confirmed by Natacha NAVAS, Pat ([id number]) on 09/19/2024 11:16:22 AM [facility] 09/18/2024 10:1 1 AM CDT 09/19/2024 11:16 AM CDT us Shelly Ramon MD ECG ORDERABLES Final Result [facility] * (ABNORMAL) eGFR (09/18/2024 3:20 AM CDT) [...] ORDERA BLES Final Result Performing Organization Address City/[facility]/ZIP Co de Phone Number [facility] [place] [address] * Magnesium (09/18/2024 3:20 AM CDT) Magnesium 2.2 1.4 - 2.5 mg/dL Blood 09/18/2024 3:20 AM CDT 09/18/2024 5:01 AM CDT Vikas Gaytan MD LAB BLOOD ORDERA BLES Final Result [facility] [place] [address] * (ABNORMAL) Basic metabolic panel (09/18/2024 3:20 AM CDT) Pathologist [facility] Sodium 139 135 - 145 mmol/L Potassium, pl 4.2 3.3 - 4.9 mmol/L [facility] Chloride 105 97 - 110 mmol/L [facility] CO2 25 22 - 32 mmol/L [facility] Anion gap 9 2 - 15 mmol/L [facility] BUN 20 6 - 25 mg/dL [facility] Creatinine 1.52(H) 0.80 - 1.30 mg/dL [facility] Glucose 128 70 - 199 mg/dL [facility] Comment: Interpretive Data Fasting glucose >/= 126 [...] 2022. Calcium 8.9 8.5 - 10.3 mg/dL [facility] Blood 09/18/2024 3:20 AM CDT 09/18/2024 5:01 AM CDT Vikas Gaytan MD LAB BLOOD ORDERA BLES Final Result [facility] [place] [address] * ECG 12 lead (09/17/2024 10:34 AM CDT) Pathologist [facility] Ventricular Rate EKG/Min 59 BPM [facility] Atrial Rate 59 BPM [facility] CO-Interval (MSEC) 140 ms [facility] QRS-Interval (MSEC) 72 ms [facility] QT-Interval (MSEC) 414 ms [facility] QTc 409 ms [facility] P [place] 15 degrees [facility] R [place] -15 degrees [facility] T [place] 14 degrees [facility] Diagnosis Sinus bradycardia with Premature atrial complexes Otherwise normal ECG No previous ECGs available Confirmed by HIEU ALCANTAR M.D ([id number]) on 09/18/2024 10:12:19 AM [facility] 09/17/2024 10:3 4 AM CDT 09/18/2024 10:12 AM CDT Shelly Ramon MD ECG ORDERABLES Final Result [facility] * (ABNORMAL) eGFR (09/17/2024 3:19 AM CDT) [...] MD LAB BLOOD ORDERA BLES Final Result [facility] [place] [address] * Magnesium (09/17/2024 3:19 AM CDT) Pathologist [facility] Magnesium 2.1 1.4 - 2.5 mg/dL Blood 09/17/2024 3:19 AM CDT 09/17/2024 4:29 AM CDT Vikas Gaytan MD LAB BLOOD ORDERA BLES Final Result [facility] [place] [address] * (ABNORMAL) Basic metabolic panel (09/17/2024 3:19 AM CDT) Pathologist [facility] Sodium 139 135 - 145 mmol/L Potassium, pl 4.6 3.3 - 4.9 mmol/L [facility] Chloride 105 97 - 110 mmol/L [facility] CO2 25 22 - 32 mmol/L [facility] Anion gap 9 2 - 15 mmol/L [facility] BUN 18 6 - 25 mg/dL [facility] Creatinine 1.40(H) 0.80 - 1.30 mg/dL [facility] Glucose 106 70 - 199 mg/dL [facility] Comment: Interpretive Data Fasting glucose >/= 126 [...] 2022. Calcium 9.1 8.5 - 10.3 mg/dL [facility] Blood 09/17/2024 3:19 AM CDT 09/17/2024 4:29 AM CDT Vikas Gaytan MD LAB BLOOD ORDERA BLES Final Result Performing Organization Address City/[facility] Co de Phone Number [facility] [place] [address] * (ABNORMAL) eGFR (09/16/2024 3:40 AM CDT) [...] LAB BLOOD ORDER GENESIS Final Result [facility] [place] [address] * Differential, auto (09/16/2024 3:40 AM CDT) Neutrophil abs 3.77 1.50 - 6.50 K/cumm Imm gran abs 0.01 0.00 - 0.10 K/cumm [facility] Lymphocyte abs 1.69 0.80 - 3.30 K/cumm [facility] Monocyte abs 0.50 0.20 - 0.80 K/cumm [facility] Eosinophil abs 0.17 0.00 - 0.50 K/cumm [facility] Basophil abs 0.03 0.00 - 0.10 K/cumm [facility] Neutrophil pct 61.0 % [facility] Comment: Interpretive Data Percent cell count reference ranges are not reported, since discordance with absolute values may lead to misinterpretation of CBC data. Current Interpretive Data was last revised on 2017. Imm gran pct 0.2 % [facility] Comment: Interpretive Data Percent cell count reference ranges are not reported, since discordance with absolute values may lead to misinterpretation of CBC data. Current Interpretive Data was last revised on 2017. Lymphocyte pct 27.4 % [facility] Comment: Interpretive Data Percent cell count reference ranges are not reported, since discordance with absolute values may lead to misinterpretation of CBC data. Current Interpretive Data was last revised on 2017. Monocyte pct 8.1 % [facility] Comment: Interpretive Data Percent cell count reference ranges are not reported, since discordance with absolute values may lead to misinterpretation of CBC data. Current Interpretive Data was last revised on 2017. Eosinophil pct 2.8 % [facility] Comment: Interpretive Data Percent cell count reference ranges are not reported, since discordance with absolute values may lead to misinterpretation of CBC data. Current Interpretive Data was last revised on 2017. Basophil pct 0.5 % [facility] Comment: Interpretive Data Percent cell count reference ranges are not reported, since discordance with absolute values may lead to misinterpretation of CBC data. Current Interpretive Data was last revised on 2017. Blood 09/16/2024 3:40 AM CDT 09/16/2024 5:09 AM CDT Shelly Ramon MD LAB BLOOD ORDER GENESIS Final Result [facility] [place] [address] * (ABNORMAL) CBC with auto differential (09/16/2024 3:40 AM CDT) [facility] WBC 6.17 3.80 - 9.90 K/cumm Hgb 14.5 13.0 - 17.5 g/dL [facility] Hct 42.8 38.9 - 50.3 % [facility] Plt 146(L) 150 - 400 K/cumm [facility] MPV 11.2 9.1 - 12.3 fL [facility] RBC 4.69 4.30 - 5.80 M/cumm [facility] MCV 91.3 81.3 - 96.4 fL [facility] MCH 30.9 27.1 - 33.3 pg [facility] MCHC 33.9 32.3 - 35.7 g/dL [facility] RDW CV 14.0 11.1 - 14.9 % [facility] RDW SD 46.4 35.7 - 48.1 fL [facility] NRBC abs 0.00 0.00 - 0.01 K/cumm [facility] Blood 09/16/2024 3:40 AM CDT 09/16/2024 5:09 AM CDT Shelly Ramon MD LAB BLOOD ORDER GENESIS Final Result Performing Organization Address City/[facility] Co de Phone Number [facility] [place] [address] * Phosphorus (09/16/2024 3:40 AM CDT) [facility] Phosphorus, pl 3.9 2.3 - 4.5 mg/dL Blood 09/16/2024 3:40 AM CDT 09/16/2024 5:08 AM CDT Shelly Ramon MD LAB BLOOD ORDER GENESIS Final Result Performing Organization Address City/[facility]/ZIP Co de Phone Number [facility] [place] [address] * Magnesium (09/16/2024 3:40 AM CDT) Magnesium 2.2 1.4 - 2.5 mg/dL Blood 09/16/2024 3:40 AM CDT 09/16/2024 5:08 AM CDT Shelly Ramon MD LAB BLOOD ORDER GENESIS Final Result [facility] [place] [address] * (ABNORMAL) Comprehensive metabolic panel (09/16/2024 3:40 AM CDT) Pathologist [facility] Sodium 140 135 - 145 mmol/L Potassium, pl 4.6 3.3 - 4.9 mmol/L [facility] Chloride 105 97 - 110 mmol/L [facility] CO2 25 22 - 32 mmol/L [facility] Anion gap 10 2 - 15 mmol/L [facility] BUN 16 6 - 25 mg/dL [facility] Creatinine 1.50(H) 0.80 - 1.30 mg/dL [facility] Glucose 89 70 - 199 mg/dL [facility] Comment: Interpretive Data Fasting glucose >/= 126 [...] 2022. Calcium 9.2 8.5 - 10.3 mg/dL [facility] Bilirubin, total 0.8 0.1 - 1.2 mg/dL [facility] Protein, pl 6.8 6.5 - 8.5 g/dL [facility] Albumin 4.0 3.5 - 5.0 g/dL [facility] Alk phos 78 40 - 130 Units/L [facility] ALT 33 7 - 55 Units/L [facility] AST 31 10 - 50 Units/L [facility] Blood 09/16/2024 3:40 AM CDT 09/16/2024 5:08 AM CDT Shelly Ramon MD LAB BLOOD ORDER GENESIS Final Result Performing Organization Address City/[facility]/ZIP Co de Phone Number [facility] [place] [address] * (ABNORMAL) eGFR (09/15/2024 10:31 PM CDT) [...] ORDER GENESIS Final Result Performing Organization Address City/[facility]/ZIP Co de Phone Number [facility] [place] [address] * Differential, auto (09/15/2024 10:31 PM CDT) Neutrophil abs 4.05 1.50 - 6.50 K/cumm Imm gran abs 0.03 0.00 - 0.10 K/cumm [facility] Lymphocyte abs 1.99 0.80 - 3.30 K/cumm [facility] Monocyte abs 0.53 0.20 - 0.80 K/cumm [facility] Eosinophil abs 0.17 0.00 - 0.50 K/cumm [facility] Basophil abs 0.02 0.00 - 0.10 K/cumm [facility] Neutrophil pct 59.7 % [facility] Comment: Interpretive Data Percent cell count reference ranges are not reported, since discordance with absolute values may lead to misinterpretation of CBC data. Current Interpretive Data was last revised on 2017. Imm gran pct 0.4 % [facility] Comment: Interpretive Data Percent cell count reference ranges are not reported, since discordance with absolute values may lead to misinterpretation of CBC data. Current Interpretive Data was last revised on 2017. Lymphocyte pct 29.3 % [facility] Comment: Interpretive Data Percent cell count reference ranges are not reported, since discordance with absolute values may lead to misinterpretation of CBC data. Current Interpretive Data was last revised on 2017. Monocyte pct 7.8 % [facility] Comment: Interpretive Data Percent cell count reference ranges are not reported, since discordance with absolute values may lead to misinterpretation of CBC data. Current Interpretive Data was last revised on 2017. Eosinophil pct 2.5 % [facility] Comment: Interpretive Data Percent cell count reference ranges are not reported, since discordance with absolute values may lead to misinterpretation of CBC data. Current Interpretive Data was last revised on 2017. Basophil pct 0.3 % [facility] Comment: Interpretive Data Percent cell count reference ranges are not reported, since discordance with absolute values may lead to misinterpretation of CBC data. Current Interpretive Data was last revised on 2017. Blood 09/15/2024 10:3 1 PM CDT 09/15/2024 11:27 PM CDT Shelly Ramon MD LAB BLOOD ORDER GENESIS Final Result Performing Organization Address City/[facility] Co de Phone Number [facility] [place] [address] * (ABNORMAL) CBC with auto differential (09/15/2024 10:31 PM CDT) [facility] WBC 6.79 3.80 - 9.90 K/cumm Hgb 14.1 13.0 - 17.5 g/dL [facility] Hct 40.7 38.9 - 50.3 % [facility] Plt 145(L) 150 - 400 K/cumm [facility] MPV 11.3 9.1 - 12.3 fL [facility] RBC 4.59 4.30 - 5.80 M/cumm [facility] MCV 88.7 81.3 - 96.4 fL [facility] MCH 30.7 27.1 - 33.3 pg [facility] MCHC 34.6 32.3 - 35.7 g/dL [facility] RDW CV 13.9 11.1 - 14.9 % [facility] RDW SD 45.0 35.7 - 48.1 fL [facility] NRBC abs 0.00 0.00 - 0.01 K/cumm [facility] Blood 09/15/2024 10:3 1 PM CDT 09/15/2024 11:27 PM CDT Shelly Ramon MD LAB BLOOD ORDER GENESIS Final Result [facility] [place] [address] * aPTT (09/15/2024 10:31 PM CDT) [facility] aPTT 34 28 - 38 sec Comment: Interpretive Data Heparin therapeutic range: 66.0 - 100.0 seconds. Range based on correlation with therapeutic heparin activity range of 0.3 - 0.7 Units/mL. Current interpretive data was last revised on 2022. Blood 09/15/2024 10:3 1 PM CDT 09/15/2024 11:27 PM CDT Shelly Ramon MD LAB BLOOD ORDER GENESIS Final Result Performing Organization Address [facility] de Phone Number [facility] [place] [address] * (ABNORMAL) Protime-INR (09/15/2024 10:31 PM CDT) PT 15.3(H) 9.7 - 13.0 sec INR 1.41(H) 0.90 - 1.20 [facility] Comment: Interpretive data Oral anticoagulant therapeutic ranges: Venous thromboembolism prophylaxis or treatment: 2.0-3.0 CARDIOLOGY Standard range: 2.0-3.0 High-intensity range: 2.5-3.5 Refer to indication-specific guidelines for appropriate target ranges for prosthetic heart valve replacement. Current interpretive data was last revised on 2019. Blood 09/15/2024 10:3 1 PM CDT 09/15/2024 11:27 PM CDT Shelly Ramon MD LAB BLOOD ORDER GENESIS Final Result Performing Organization Address [facility] de Phone Number [facility] [place] [address] * TSH (09/15/2024 10:31 PM CDT) Thyroid Stimulating Hormone 2.42 0.30 - 4.20 mcIUnit/mL Blood 09/15/2024 10:3 1 PM CDT 09/15/2024 11:26 PM CDT Shelly Ramon MD LAB BLOOD ORDER GENESIS Final Result Performing Organization Address [facility]/ZIP Co de Phone Number [facility] [place] [address] * Phosphorus (09/15/2024 10:31 PM CDT) [facility] Phosphorus, pl 2.7 2.3 - 4.5 mg/dL Blood 09/15/2024 10:3 1 PM CDT 09/15/2024 11:26 PM CDT Shelly Ramon MD LAB BLOOD ORDER GENESIS Final Result Performing Organization Address City/[facility] Co de Phone Number [facility] [place] [address] * Magnesium (09/15/2024 10:31 PM CDT) [facility] Magnesium 2.4 1.4 - 2.5 mg/dL Blood 09/15/2024 10:3 1 PM CDT 09/15/2024 11:26 PM CDT Shelly Ramon MD LAB BLOOD ORDER GENESIS Final Result Performing Organization Address City/[facility] Co de Phone Number [facility] [place] [address] * (ABNORMAL) Comprehensive metabolic panel (09/15/2024 10:31 PM CDT) [facility] Sodium 142 135 - 145 mmol/L Potassium, pl 4.2 3.3 - 4.9 mmol/L [facility] Chloride 105 97 - 110 mmol/L [facility] CO2 29 22 - 32 mmol/L [facility] Anion gap 8 2 - 15 mmol/L [facility] BUN 16 6 - 25 mg/dL [facility] Creatinine 1.45(H) 0.80 - 1.30 mg/dL [facility] Glucose 127 70 - 199 mg/dL [facility] Comment: Interpretive Data Fasting glucose >/= 126 [...] Calcium 9.3 8.5 - 10.3 mg/dL [facility] Bilirubin, total 1.0 0.1 - 1.2 mg/dL [facility] Protein, pl 6.6 6.5 - 8.5 g/dL [facility] Albumin 4.0 3.5 - 5.0 g/dL [facility] Alk phos 72 40 - 130 Units/L [facility] ALT 35 7 - 55 Units/L [facility] AST 28 10 - 50 Units/L [facility] Blood 09/15/2024 10:3 1 PM CDT 09/15/2024 11:26 PM CDT Shelly Ramon MD LAB BLOOD ORDER GENESIS Final Result [facility] [place] [address] * ECG 12 lead (07/23/2024 12:01 PM [...] Albumin Creatinine Ratio, Urine (02/14/2021 6:52 PM PLASTICS WORKER) Pathologist [facility] Albumin Ur 17.7 mg/L [facility] Comment: Interpretive Data No reference range established. Current interpretive data was last revised 2018. Creatinine Ur 209.0 mg/dL [facility] Comment: Interpretive Data No reference range established. Current interpretive data was last revised 2018. Albumin Creatinine Ratio, Ur 8 1 - 29 mg/g [facility] Urine 02/14/2021 6:52 PM PLASTICS WORKER 02/14/2021 6:59 PM PLASTICS WORKER Ulysses FUNES LAB URINE ORDERABLES F inal Result [facility] [place] [address] * Hepatitis panel, acute (02/14/2021 6:52 PM PLASTICS WORKER) Pathologist [facility] Hep A IgM Nonreactive Nonreactive [facility] Comment: Interpretive Data: If Hep A IgM Ab is reported as Equivocal, a new sample should be drawn in two weeks for testing. Current interpretive data was last revised on 19. Hep B core IgM Nonreactive Nonreactive [facility] Comment: Interpretive Data If HepB Core IgM Ab is reported as Equivocal, a new sample should be drawn in two weeks for testing. Current interpretive data was last revised on 19. Hep C Ab Nonreactive Nonreactive [facility] Comment:Antibodies to HCV no t detected. Does NOT exclude the possibility of recent exposure to HCV. HepBsAg Nonreactive Nonreactive [facility] Blood 02/14/2021 6:52 PM PLASTICS WORKER 02/14/2021 6:58 PM PLASTICS WORKER [facility] LAB MICROBIOLOGY - GEN ERAL ORDERABLES Edited Result - Final Performing Organization Address [facility] de Phone Number [facility] [place] [address] * (ABNORMAL) Hemoglobin A1c (02/14/2021 1:28 PM PLASTICS WORKER) Hgb A1C 6.3(H) 4.0 - 5.6 % [facility] Estimated Average Glucose 134 mg/dL [facility] Comment: The ADA recommends reporting an estimated Average Glucose (eAG) with all Hemoglobin A1c results using the equation derived from a study of 507 normal and diabetic adults. Minority populations were underrepresented and children were not included. (Diabetes Care 2020; 43(S1): S66-S76). The eAG is not equivalent to a fasting glucose. Blood 02/14/2021 1:28 PM PLASTICS WORKER 02/14/2021 2:08 PM PLASTICS WORKER Notinfile Unknown LAB BLOOD ORDERABLES Final Res ult Performing Organization Address [facility] de Phone Number [facility] [place] [address] * (ABNORMAL) Serum lipid panel (08/09/2015 3:53 [...] collect in outpatient setting. 09/17/2024 09/30/2024 Insurance [facility] CMR Advance Directives For more information, please contact: [phone] * Full Code (Latest Code Status on File) Date Activated Date Inactivated Comments 09/15/2024 7:17 PM 09/18/2024 3:02 PM * Full Code Date Activated Date Inactivated Comments 02/24/2021 5:01 AM 02/27/2021 2:01 AM Care Teams C Web Developer Relationship Specialty Start Date End Date Malick iL MD [address] [place] [address] PCP - General Internal Medicine 04/21/20
--- OUTSIDE RECORDS SUMMARY | 2024-10-17 12:19 | XMS_ITS | Clinical Summary ---
Author Organization [facility] Address [address] [place] [address] Care Team Providers Care Rig Superintendent Name Role Phone Srikanth Hummel MD Primary Care Provider Aaliyah vailable Source Comments [facility],non-owned Affiliates and Associated Physician Practices is amultiple site organization consisting of ambulatory clinics and hospital sitesin [place], [place]. This disclosure is being madepursuant to the Care Everywhere program and may not contain all information available regarding this patient. 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
--- OUTSIDE RECORDS SUMMARY | 2024-10-17 12:20 | XMS_ITS | Clinical Summary ---
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
--- OUTSIDE RECORDS SUMMARY | 2024-10-17 12:20 | XMS_ITS | Encounter Summary ---
Author Organization [facility] Address [address] [place] [address] Phone Care Team Providers Care Supervisor Grower Name Role Phone Malick Li MD Primary Care Provider +1- [phone] Encounter Details Date Type Department Care Team (Late st Contact Info) Description 10/13/2024 Results Follow-Up [facility] [address] [facility] Advanced Medicine 8th [place] [address] [place] [address] Katelin Bates, MONICA [address] [facility] 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
--- OUTSIDE RECORDS SUMMARY | 2024-10-17 12:20 | XMS_ITS | Encounter Summary ---
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
--- OUTSIDE RECORDS SUMMARY | 2024-10-17 12:20 | XMS_ITS | Encounter Summary ---
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
[2024-10-17 12:31] LABS: Lipase 83 U/L (23-300)
[2024-10-17 12:32] LABS: Alanine Aminotransferase 21 U/L (6-50); Albumin Level 3.9 g/dL (3.5-5.1); Alkaline Phosphatase 66 U/L (38-126); Anion Gap 7 mmol/L (4-12); Aspartate Amino Transferase 22 U/L (17-59); Bilirubin,Total 1.6 mg/dL (0.2-1.3); Blood Urea Nitrogen 13 mg/dL (9-20); Calcium 8.9 mg/dL (8.4-10.2); Carbon Dioxide 28 mmol/L (22-30); Chloride 102 mmol/L (98-107); Estimated CRCL calculation 45 ml/min; Estimated Glomerular Filt Rate 51; Glucose 108 mg/dL (65-110); INR 1.1; Osmolality Calculated 285 mOsm/kg (285-295); Potassium 4.5 mmol/L (3.4-5.0); Prothrombin Time 11.8 Seconds (9.50-12.1); Sodium 137 mmol/L (137-145); Total Protein 6.9 g/dL (6.3-8.2)
[2024-10-17 12:46] LABS: Add Urine Microscopic? NO; Appearance Urine Clear (Clear); Glucose Urine UA Negative (Negative); Leukocyte Esterase Ur Negative LEU/UL (Negative); Nitrate Urine Negative (Negative); Specific Grav Ur 1.020 (1.010-1.020)
[2024-10-17] MEDS: LACTATED RINGERS 1,000 ML 999 ML IV CONT (13:47)
== END 2024-10-17 15:16 | disposition home or self-care (01) ==
PROVIDERS: Emergency Provider Internal Medicine Critical Care Medicine
DX: K57.92 Diverticulitis of intestine, part unspecified, without perforation or abscess without bleeding (principal); I48.91 Unspecified atrial fibrillation; F17.210 Nicotine dependence, cigarettes, uncomplicated; Z79.01 Long term (current) use of anticoagulants
CPT/HCPCS: 36415; 74177; 80053; 81003; 83605; 83690; 85025; 85610; 96360; 99284; J7120; Q9967